=== PATIENT | female | born 1955 | race African-American/Black ===

== ENCOUNTER 2021-05-10 10:18 | Emergency (ER) | payer BC, SELFPAY ==
--- NOTE | ~2021-05-10 | XR_ITS ---
XR shoulder LT min 2V DATE: 05/10/2021 11:15 INDICATION: Left shoulder pain for 4 days. No known injury. TECHNIQUE: 4 views COMPARISON: None FINDINGS: No fracture, dislocation, periosteal reaction or bone destruction or abnormal soft tissue c alcification. Normal alignment at the acromioclavicular and glenohumeral joints. IMPRESSION: Negative Reviewed, dictated and finalized at location B. IMPRESSION: Negative
[2021-05-10 10:43] VITALS: BP 136/72; PULSE 77; RESP 16; TEMP 37.1; O2SAT 100
[2021-05-10 10:44] VITALS: BP 136/72; PULSE 77; RESP 16; TEMP 37.1; O2SAT 100
--- NOTE | 2021-05-10 11:08 | ED.UPPEXIN ---
HPI - Extremity Injury (Upper) General Chief Complaint: Extremity Injury, Upper Stated Complaint: left arm pain Source: patient and RN notes reviewed Mode of arrival: ambulatory History of Present Illness HPI narrative: This is a 65-year-old female that presented to urgent care with complaints of left shoulder and arm pain that occurred approximately 1 week ago. Patient denies any injury or heavy lifting she also denies any numbness tingling, loss of sensation, loss of movement, swelling denies any asymmetrical alignment of arm or shoulder or gait disturbance. The patient denies SOB, CP, palpitation, extremity numbness, lightheadedness, dizziness, constipation, diarrhea, chills, or fever. MD complaint: injury to: left and shoulder Related Data Home Medications Medication Instructions Recorded Confirmed aspirin 81 mg chewable tablet 81 mg PO DAILY 09/04/19 04/27/21 calcium carbonate 600 mg calcium 600 mg PO DAILY 09/04/19 04/27/21 (1,500 mg) tablet cholecalciferol (vitamin D3) 25 1,000 unit PO DAILY 09/04/19 04/27/21 mcg (1,000 unit) capsule lutein 25 mg-zeaxanthin 5 mg 1 cap PO DAILY 09/04/19 04/27/21 capsule multivitamin 1 tablet PO DAILY 09/04/19 04/27/21 prenat.vits,rosa maria,[id number]-[id number] 1 tablet PO DAILY 09/04/19 04/27/21 coQ10 (ubiquinol) 400 mg PO DAILY 10/21/19 04/27/21 fish oil-dha-epa 1 cap PO DAILY 10/21/19 04/27/21 safflower oil-linoleic acid,co 2,000 mg PO TID 10/21/19 04/27/21 [Tonalin CLA] nifedipine PO 05/10/21 05/10/21 Allergies Allergy/AdvReac Type Severity Reaction Status Date / Time erythromycin base Allergy Unknown NAUSEA/VOMITING, Verified 05/10/21 10:43 CRAMPS Review of Systems Review of Systems: Narrative: A 14 organ system Review of Systems was performed and pertinent positives included in the HPI, otherwise remaining ROS is negative. All systems reviewed & are unremarkable except as noted in HPI and below PMFSH Past Medical History Medical History Benign essential HTN Chronic kidney disease (CKD) Hypertensive chronic kidney disease with stage 1 through stage 4 chronic kidney disease, or unspecified chronic kidney disease Internal hemorrhoid Mitral valve prolapse no symptoms since on aspirin Pure hypercholesterolemia Rectal polyp Wellness examination Family History Family History (System 04/26/21 @ 14:59 by Mahsa Ansari) Mother Hypertension Father Family history of diabetes mellitus in first degree relative Social History Social History (Updated 04/27/21 @ 13:00 by Griselda Quan) Smoking status: Never smoker Second hand tobacco smoke exposure: No Alcohol intake: never Substance use: never Gender identity (if verbalized by the patient): Female Exam Narrative: Exam Narrative: GENERAL: This is a well-nourished, well-developed patient, in no apparent distress. HEAD: normocephalic, atraumatic. EYES: PERRL. Sclera clear/white. Vision is grossly intact. EARS: External ears normal, auditory canals clear and without drainage, TMs normal without perforation. Hearing grossly intact. NOSE: External nose normal with no obvious nasal discharge, nares without redness, no rhinorrhea. THROAT: Mucous membranes moist, posterior pharynx clear. NECK: Neck supple, non-tender without lymphadenopathy, masses or thyromegaly. CARDIOVASCULAR: Regular rate and rhythm without murmurs, gallops, or rubs. RESPIRATORY: Clear to auscultation. Breath sounds equal bilaterally. No wheezes, rales, or rhonchi. GASTROINTESTINAL: Abdomen soft, non-tender, nondistended. Bowel sounds are active. No hepato-splenomegaly, or palpable masses. No guarding. SKIN: warm, intact with no suspicious lesions or rash, good texture and turgor. NEURO: awake, alert, and oriented to person, place and time. There were no obvious focal neurologic abnormalities. Steady gait EXTREMITIES: Normal range of motion. Pain with arm rise to the left shoulder ca
== END 2021-05-10 11:30 | disposition home or self-care (01) ==
PROVIDERS: Emergency Provider Nurse Practitioner; PCP Family Medicine
DX: S43.402A Unspecified sprain of left shoulder joint, initial encounter (principal); S46.912A Strain of unspecified muscle, fascia and tendon at shoulder and upper arm level, left arm, initial encounter; X58.XXXA Exposure to other specified factors, initial encounter; I12.9 Hypertensive chronic kidney disease with stage 1 through stage 4 chronic kidney disease, or unspecified chronic kidney disease; N18.9 Chronic kidney disease, unspecified; I34.1 Nonrheumatic mitral (valve) prolapse; E78.00 Pure hypercholesterolemia, unspecified
CPT/HCPCS: 73030; 99213; G0463

== ENCOUNTER 2022-03-03 13:06 | Emergency (ER) | payer BC, SELFPAY ==
[2022-03-03 13:09] VITALS: BP 163/82; PULSE 83; RESP 18; TEMP 37.2; O2SAT 100
[2022-03-03 13:35] LABS: Basophils Percent Auto 0.2 % (0.2-1.2); Eosinophils Percent Auto 0.2 % (0-4.4); Hematocrit 40.6 % (37.0-47.0); Hemoglobin 12.7 g/dL (12.0-15.0); Immature Granulocyte Absolute 0.05 K/mm3 (0.00-0.031); Immature Granulocyte Percent A 0.4 % (0-0.5); Lymphocytes Absolute Auto 1.74 K/mm3 (0.9-3.2); Lymphocytes Percent Auto 13.1 % (18.3-44.2); Mean Corpuscular HGB Conc 31.3 g/dl (32-36); Mean Corpuscular Volume 86.2 fl (80-100); Mean Platelet Volume 11.1 fl (7.4-10.4); Monocytes Absolute Auto 0.5 K/mm3 (0.1-0.6); Monocytes Percent Auto 3.7 % (2.6-8.5); Neutrophils Percent Auto 82.4 % (45.5-73.1); Platelet Count Result 281 k/mm3 (150-375); Red Blood Count 4.71 M/mm3 (4.2-5.4); Red Cell Distribution Width 13.6 % (11.5-14.5); White Blood Count 13.3 K/mm3 (4.5-10.0)
[2022-03-03 13:48] LABS: Prothrombin Time 13.2 Seconds (11.1-14.7)
[2022-03-03 13:49] LABS: Alanine Aminotransferase 23 U/L (4-35); Albumin Level 4.6 g/dL (3.5-5.1); Alkaline Phosphatase 92 U/L (38-126); Anion Gap 10 mmol/L (8-16); Aspartate Amino Transferase 39 U/L (14-36); Bilirubin,Total 0.8 mg/dL (0.2-1.3); Blood Urea Nitrogen 28 mg/dL (7-17); Calcium 9.3 mg/dL (8.4-10.2); Carbon Dioxide 28 mmol/L (22-30); Chloride 103 mmol/L (98-107); Estimated CRCL calculation 35 ml/min; Estimated Glomerular Filt Rate 50; Glucose 130 mg/dL (65-110); Partial Thromboplastin Time 36.1 SECONDS (22.3-36.8); Sodium 141 mmol/L (137-145)
[2022-03-03 17:51] VITALS: BP 161/89; PULSE 68; RESP 18; O2SAT 100
--- NOTE | 2022-03-03 18:34 | ED.GIBLEED ---
HPI - GI Bleed General Chief complaint: GI Bleed Stated complaint: black stool, stomach cramps, stomach pain Time Seen by Provider: 03/03/22 17:49 History of Present Illness HPI Narrative: Patient is a 66-year-old female who presents ER with concerns for GI bleeding. Reports she woke up this morning at 3 AM was having lower abdominal cramping. It then progressed to diarrhea. She reports her stools have been dark black. She has had about 5 episodes of loose black stool today. Denies taking Pepto-Bismol or iron supplementation. She is not on any blood thinners. She does take a baby aspirin daily. No other NSAID use. Patient has had no dizziness or loss of consciousness. No gross blood in stool. Patient has also had several episodes of emesis which are free of blood and free of coffee ground emesis. She has noticed white and yellow in her emesis. Related Data Home Medications Medication Instructions Recorded Confirmed aspirin 81 mg chewable tablet 81 mg PO DAILY 09/04/19 04/27/21 calcium carbonate 600 mg calcium 600 mg PO DAILY 09/04/19 04/27/21 (1,500 mg) tablet cholecalciferol (vitamin D3) 25 1,000 unit PO DAILY 09/04/19 04/27/21 mcg (1,000 unit) capsule lutein 25 mg-zeaxanthin 5 mg 1 cap PO DAILY 09/04/19 04/27/21 capsule multivitamin 1 tablet PO DAILY 09/04/19 04/27/21 prenat.vits,rosa maria,kcn-nhqs-czplm 1 tablet PO DAILY 09/04/19 04/27/21 coQ10 (ubiquinol) 400 mg PO DAILY 10/21/19 04/27/21 fish oil-dha-epa 1 cap PO DAILY 10/21/19 04/27/21 safflower oil-linoleic acid,co 2,000 mg PO TID 10/21/19 04/27/21 [Tonalin CLA] Allergies Allergy/AdvReac Type Severity Reaction Status Date / Time erythromycin base Allergy Unknown NAUSEA/VOMITING, Verified 12/09/21 13:00 CRAMPS Review of Systems Review of Systems: All systems reviewed & are unremarkable except as noted in HPI and below Constitutional: Constitutional: Denies chills, Denies fever(s) and Denies weakness ENT: Denies nasal congestion and Denies sore throat Cardiovascular: Cardiovascular: Denies chest pain, Denies rapid heart rate and Denies radiating jaw, neck or arm pain Respiratory: Respiratory: Denies cough and Denies dyspnea Gastrointestinal: Gastrointestinal: Reports abdominal pain, Reports diarrhea, Reports nausea and Reports vomiting Genitourinary: Genitourinary: Denies nocturia, Denies dysuria and Denies flank pain PMFSH Past Medical History Medical History (Updated 03/03/22 @ 18:39 by Margarito Cardona MD) Benign essential HTN Chronic kidney disease (CKD) Hypertensive chronic kidney disease with stage 1 through stage 4 chronic kidney disease, or unspecified chronic kidney disease Internal hemorrhoid Mitral valve prolapse no symptoms since on aspirin Pure hypercholesterolemia Rectal polyp Wellness examination Family History Family History Mother Hypertension Father Family history of diabetes mellitus in first degree relative Social History Social History Smoking status: Never smoker Second hand tobacco smoke exposure: No Alcohol intake: never Substance use: never Gender identity (if verbalized by the patient): Female Sexual Orientation (if Verbalized by the Patient): Straight or Heterosexual Exam Narrative: GENERAL: Well-appearing, well-nourished, and in no acute distress. HEAD: Normocephalic, atraumatic.st. CHEST: Clear to auscultation. No respiratory distress. HEART: Regular rate and rhythm. Normal peripheral pulses. ABDOMEN: Soft, nontender, nondistended, normal active bowel sounds. Stool normal in appearance and Hemoccult negative. No gross blood. EXTREMITIES: Normal range of motion. No edema. SKIN: Warm, dry, no rash. NEURO: Alert and oriented x3. PSYCH: Normal mood and affect. Course Course Emergency Course: Patient informed of results. No evidence of gastrointestinal bleeding.
[2022-03-03 19:16] VITALS: BP 162/88; PULSE 72; RESP 16; TEMP 36.3; O2SAT 100
== END 2022-03-03 19:17 | disposition home or self-care (01) ==
PROVIDERS: Emergency Provider Emergency Medicine; PCP Family Medicine
DX: K52.9 Noninfective gastroenteritis and colitis, unspecified (principal); I12.9 Hypertensive chronic kidney disease with stage 1 through stage 4 chronic kidney disease, or unspecified chronic kidney disease; N18.9 Chronic kidney disease, unspecified; E78.00 Pure hypercholesterolemia, unspecified; Z87.19 Personal history of other diseases of the digestive system; Z79.82 Long term (current) use of aspirin
CPT/HCPCS: 36415; 80053; 85025; 85610; 85730; 86850; 86900; 86901; 99283

== ENCOUNTER → 2022-08-18 14:02 | Outpatient (CLI) | payer BC, SELFPAY ==
--- NOTE | ~2022-08-18 | DEXA_ITS ---
Bone Density Report Name: LORNA GONG Age: 66 Sex: Female Ethnicity: Black Date of : 1955 Indication: postmenopausal; screening for osteoporosis; Referring Provider: JANKI, MARTINA Study: Bone densitometry was performed. Exam Date: August 18, 2022 Accession number: [id number] Bone Density: Region BMD T-score Z-score Classification AP Spine (L1-L4) 1.014 -0.3 0.7 Normal Femoral Neck (Left) 0.744 -0.9 -0.2 Normal Total Hip (Left) 0.817 -1.0 -0.4 Normal Femoral Neck (Right) 0.760 -0.8 -0.1 Normal Total Hip (Right) 0.846 -0.8 -0.2 Normal Total Hip Mean 0.832 -0.9 -0.3 Normal World Health Organization criteria for BMD impression classify patients as: Normal (T-score at or above -1.0), Osteopenia (T-score between -1.0 and -2.5), or Osteoporosis (T-score at or below -2.5). 10-year Fracture Risk: FRAX not reported because: All T-scores for Spine Total, Hip Total, Femoral Neck at or above -1.0 Previous Exams: Region Exam Age BMD T-score BMD Change BMD Change Date g/cm2 vs Baseline vs Previous AP Spine(L1-L4) 08/18/2022 66 1.014 -0.3 -0.150* -0.060* 04/30/2015 59 1.075 0.3 -0.090* 0.033* 08/11/2012 56 1.041 -0.1 -0.123* -0.123* 10/21/2009 53 1.165 1.1 Total Hip(Left) 08/18/2022 66 0.817 -1.0 -0.129* -0.062* 04/30/2015 59 0.879 -0.5 -0.067* 0.032* 08/11/2012 56 0.847 -0.8 -0.099* -0.099* 10/21/2009 53 0.946 0.0 Total Hip(Right) 08/18/2022 66 0.846 -0.8 -0.105* -0.035* 04/30/2015 59 0.881 -0.5 -0.070* -0.028* 08/11/2012 56 0.909 -0.3 -0.042* -0.042* 10/21/2009 53 0.951 0.1 *Denotes significance at 95% confidence level, LSC for AP Spine = 0.022 g/cm2, LSC for Total Hip = 0.027 g/cm2 Clinical Information Provided by Patient: Has used the following medications: Vitamin D, Calcium Patient maximum height was 65 Menopause Age: 52 Does not regularly consume dairy products Drinks caffeinated beverages Onset of menses at age 16 Number of children 2 Impression: The patient has normal bone mass. The BMD for the AP Spine(L1-L4) decreased, changing by -0.060 since the last DXA exam. The BMD for the Total Hip(Left) decreased, changing by -0.062 since the last DXA exam. The BMD for the Total Hip(Right) decreased, changing by -0.035 since the last DXA
== END ==
PROVIDERS: PCP Family Medicine; Visit Provider Nurse Practitioner
DX: M85.88 Other specified disorders of bone density and structure, other site (principal)
CPT/HCPCS: 77080

== ENCOUNTER → 2022-10-03 12:00 | Outpatient (CLI) | payer BC, SELFPAY ==
--- NOTE | ~2022-10-03 | MM_ITS ---
EXAMINATION: MM screening francy BI w renay HISTORY: Screening mammogram TECHNIQUE: Craniocaudal and mediolateral oblique 3-D tomosynthesis images were obtained and synthetic 2-D images were generated. CAD analysis was submitted and interpreted. COMPARISON: No prior mammogram is available for comparison at this institution. BREAST PARENCHYMAL COMPOSITION: There are scattered areas of fibroglandular density. FINDINGS: RIGHT BREAST: An asymmetry is present in the posterior third of the inner breast on the craniocaudal view. LEFT BREAST: No suspicious mass, calcification, or architectural distortion are identified to suggest malignancy. IMPRESSION: 1. Right breast asymmetry which may represent the patient's baseline however no comparison is current ly available. 2. Comparison with prior mammograms is necessary. BI-RADS Category 0: Incomplete: Needs comparison with prior mammograms. 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 Right breast asymmetry which may represent the patient's baseline however no comparison is currently available. 2. Comparison with prior mammograms is necessary. BI-RADS Category 0: Incomplete: Needs comparison with prior mammograms.
== END ==
PROVIDERS: PCP Family Medicine; Visit Provider Nurse Practitioner
DX: Z12.31 Encounter for screening mammogram for malignant neoplasm of breast (principal); R92.8 Other abnormal and inconclusive findings on diagnostic imaging of breast
CPT/HCPCS: 77063; 77067

== ENCOUNTER → 2023-07-28 12:07 | Outpatient (CLI) | payer SELFPAY ==
--- NOTE | ~2023-07-28 | XR_ITS ---
EXAMINATION:XR cervical spine min 6V DATE: 07/28/2023 13:26 INDICATION: Neck pain TECHNIQUE: AP, lateral, bilateral oblique, lateral swimmers and odontoid views of the cervical spine are provided. COMPARISON: 02/28/2006 FINDINGS: There is straightening of the cervical spine which can be positional or due to muscular spa sm. Alignment is normal. The odontoid process is intact. No fracture is identified. There is mild los s of intervertebral disc space height at C4-5, C5-6, and C6-7. Small degenerative osteophytes project from the anterior endplates of multiple vertebral bodies. Prevertebral soft tissues are normal. IMPRESSION: 1. Mild cervical spondylosis without acute findings. Reviewed, dictated and finalized at location F.
== END ==
PROVIDERS: PCP Physician Assistant; Visit Provider Physician Assistant
DX: M47.892 Other spondylosis, cervical region (principal)
CPT/HCPCS: 72052

== ENCOUNTER → 2023-11-17 11:55 | Outpatient (CLI) | payer BC, SELFPAY ==
--- NOTE | ~2023-11-17 | MM_ITS ---
EXAMINATION: MM screening francy BI w renay HISTORY: Screening TECHNIQUE: Craniocaudal and mediolateral oblique 3-D tomosynthesis images were obtained and synthetic 2-D images were generated. CAD analysis was submitted and interpreted. COMPARISON: Comparison to multiple prior studies sequentially, with oldest reviewed study dated 12/20. BREAST PARENCHYMAL COMPOSITION: There are scattered areas of fibroglandular density. FINDINGS: There is no evidence of suspicious mass, calcification, or architectural distortion to sugg est malignancy in either breast. There has been no suspicious interval change. IMPRESSION: 1. No mammographic evidence of malignancy. 2. Recommend routine screening mammography in one year. BI-RADS Category 1: Negative Reviewed, dictated and finalized at location A. 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
== END ==
PROVIDERS: PCP Nurse Practitioner; Visit Provider Nurse Practitioner
DX: Z12.31 Encounter for screening mammogram for malignant neoplasm of breast (principal)
CPT/HCPCS: 77063; 77067

== ENCOUNTER 2024-06-17 14:40 | Emergency (ER) | payer OTHER, SELFPAY ==
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
[2024-06-17 14:43] VITALS: BP 140/65; PULSE 82; RESP 18; TEMP 36.8; O2SAT 99
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
[2024-06-17] MEDS: KETOROLAC (*BKC) 60 MG/2 ML VIAL IM (17:31)
[2024-06-17 19:20] VITALS: BP 153/77; PULSE 67; RESP 17; O2SAT 99
== END 2024-06-17 19:20 | disposition home or self-care (01) ==
PROVIDERS: Emergency Provider Registered Nurse; PCP Family Medicine
DX: S13.4XXA Sprain of ligaments of cervical spine, initial encounter (principal); I12.9 Hypertensive chronic kidney disease with stage 1 through stage 4 chronic kidney disease, or unspecified chronic kidney disease; N18.9 Chronic kidney disease, unspecified; E78.5 Hyperlipidemia, unspecified; V49.40XA Driver injured in collision with unspecified motor vehicles in traffic accident, initial encounter
CPT/HCPCS: 70450; 71046; 72125; 96372; 99284; J1885

== ENCOUNTER 2024-06-25 12:42 | Outpatient (CLI) | payer BC, SELFPAY ==
--- NOTE | ~2024-06-25 | US_ITS ---
EXAMINATION: US thyroid DATE: 06/25/2024 12:57 INDICATION: Nontoxic single thyroid nodule. TECHNIQUE: Multiple ultrasound images of the thyroid were obtained. COMPARISON: None. FINDINGS: The right thyroid lobe measures 4.6 x 2.5 x 2.4 cm. The left thyroid lobe measures 4.4 x 1.6 x 1.5 c m. In the right thyroid lobe, there is a 2.9 cm mixed solid and cystic, isoechoic, wider than tall n odule with smooth margin and echogenic foci (TI-RADS TR2). In the right thyroid lobe, there is an 8 m m mixed cystic and solid, isoechoic, wider than tall nodule with ill-defined margin without echogenic foci (TR2). In the left thyroid lobe, there is a 5 mm mixed cystic and solid, hypoechoic, wider than tall nodule with smooth margin without echogenic foci (TR3). There are multiple smaller nodules in t he thyroid. IMPRESSION: 1. Thyroid nodules, likely not clinically significant. No follow-up is needed. 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
== END 2024-06-25 12:43 ==
LOC: MICIMG 12:43
PROVIDERS: PCP Physician Assistant; Visit Provider Physician Assistant
DX: E04.2 Nontoxic multinodular goiter (principal)
CPT/HCPCS: 76536

== ENCOUNTER 2024-10-05 10:57 | Emergency (ER) | payer BC, SELFPAY ==
--- NOTE | ~2024-10-05 | XR_ITS ---
EXAMINATION: XR chest 2V DATE: 10/05/2024 11:32 INDICATION: Fever. Decreased lung sounds. TECHNIQUE: Frontal and lateral views of the chest were obtained. COMPARISON: Chest 2 views 06/17/2024 FINDINGS: There is no pneumonia, pleural effusion, or pneumothorax. Cardiomegaly is noted. IMPRESSION: 1. Cardiomegaly. 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 NDER MACHINE OPERATOR IMPRESSION: 1. Cardiomegaly.
[2024-10-05 11:03] VITALS: BP 144/82; PULSE 81; RESP 20; TEMP 37; O2SAT 100
--- NOTE | 2024-10-05 11:16 | ED_ITS ---
HPI - General Adult General Chief complaint: Upper Respiratory Infection Stated complaint: sinus infection Time Seen by Provider: 10/05/24 11:17 Source: patient Mode of arrival: ambulatory Limitations: no limitations History of Present Illness HPI narrative: 58-year-old female patient presents to the [facility] with complaints of cold symptoms for the past week. Patient states she has had fatigue some body aches and chills along with low-grade fevers that range anywhere from 99-100. Patient states she has had a sore throat did test herself yesterday for COVID which was negative. Patient states she has also had some congestion, runny nose and a cough. Denies any production to the cough. Related Data Home Medications Medication Instructions Recorded Confirmed aspirin 81 mg chewable tablet 81 mg PO DAILY 09/04/19 10/05/24 calcium carbonate (Calcium 600) 600 mg PO DAILY 09/04/19 10/05/24 lutein 25 mg-zeaxanthin 5 mg 1 cap PO DAILY 09/04/19 10/05/24 capsule multivitamin 1 tablet PO DAILY 09/04/19 10/05/24 prenat.vits,rosa maria,nnl-qchq-ahjsd 1 tablet PO DAILY 09/04/19 10/05/24 coQ10 (ubiquinol) 200 mg capsule 400 mg PO DAILY 10/21/19 10/05/24 fish oil-dha-epa 1,200 mg-144 1 cap PO DAILY 10/21/19 10/05/24 mg-216 mg capsule safflower oil-linoleic acid, 2,000 mg PO TID 10/21/19 10/05/24 conjugated 1,000 mg capsule (Tonalin CLA) Allergies Allergy/AdvReac Type Severity Reaction Status Date / Time erythromycin base AdvReac Unknown NAUSEA/VOMITING, Verified 10/05/24 11:10 CRAMPS Review of Systems Review of Systems: CONSTITUTIONAL: Positive fever, body aches and chills, deniessweats. EYES: Denies visual changes, redness, or discharge. ENT: positive rhinorrhea, congestion, sore throat, denies otalgia. CARDIOVASCULAR: Denies chest pain, palpitations, or edema. RESPIRATORY: positive cough , denies dyspnea. GASTROINTESTINAL: Denies abdominal pain, nausea, vomiting, or diarrhea. GENITOURINARY: Denies dysuria or hematuria. SKIN: Denies rash or itching. MUSCULOSKELETAL: Denies back pain, joint pain, or myalgia. NEUROLOGIC: Denies headache, numbness, or weakness. PSYCHIATRIC: Denies anxiety or depression. [facility] Past Medical History Medical History Benign essential HTN Chronic kidney disease (CKD) Hypertensive chronic kidney disease with stage 1 through stage 4 chronic kidney disease, or unspecified chronic kidney disease Internal hemorrhoid Mitral valve prolapse no symptoms since on aspirin Multinodular thyroid Pure hypercholesterolemia Rectal polyp Wellness examination Family History Family History Mother Hypertension Father Family history of diabetes mellitus in first degree relative Social History Social History Smoking status: Never smoker Second hand tobacco smoke exposure: No Alcohol intake: never Substance use: never Living arrangements: with family Occupation/Education: retired Gender identity (if verbalized by the patient): Female Sexual Orientation (if Verbalized by the Patient): Straight or Heterosexual Comments At the time of my signature I agree with nursing past medical history, surgical, social, and family history. There is no relevant family history pertinent to the presenting complaint. Exam Narrative: GENERAL: Well-appearing, well-nourished, and in no acute distress. HEAD: Normocephalic, atraumatic. EYES: PERRLA and EOMI. ENT: Nares with erythema edema noted bilaterally no rhinorrhea or epistaxis. Mucous membranes moist. posterior pharynx with some postnasal drip present no tonsillar enlargement, no exudates or lesions present. Bilateral TMs are clear with no erythema foreign bodies the canal. NECK: Supple. No lymphadenopathy CHEST: Breath sounds are decreased at bilateral lower lobes on auscultation. No respiratory distress. no obvious coughing noted on / during exam HEART: Regular rate and rhythm. No murmur heard. Normal peripheral pulses. ABDOMEN: Soft, nontender, nondistended, normal active bowel sounds. EXTREMITIES: Normal range of motion. No edema. SKIN: Warm, dry, no rash. NEURO: No focal deficits. Alert and oriented x3. Course Course Level of Care: Express Care Visit Vital Signs Vital signs: Vital Signs Temperature 37.0 C 10/05/24 11:03 Pulse Rate 81 10/05/24 11:03 Respiratory Rate 20 10/05/24 11:03 Blood Pressure 144/82 H 10/05/24 11:03 Pulse Oximetry 100 10/05/24 11:03 Oxygen Delivery Room Air 10/05/24 11:03 Temperature 37.0 C 10/05/24 11:03 Pulse Rate 81 10/05/24 11:03 Respiratory Rate 20 10/05/24 11:03 Blood Pressure 144/82 H 10/05/24 11:03 Pulse Oximetry 100 10/05/24 11:03 Oxygen Delivery Room Air 10/05/24 11:03 vital signs reviewed. The patient has been informed that they may have pre-hypertension or Hypertension based on a BP reading in the department. I recommend that the patient call the primary care provider listed on their discharge instructions or a physician of their choice this week to arrange follow up for further evaluation of possible pre-hypertension or Hypertension Medical Decision Making MDM Narrative Medical decision making narrative: plan care for patient is to swab her for strep today since she has had a sore throat we will also do a chest x-ray since she has had low-grade fevers, or cough and body aches and chills and there is been frequent or reports of community acquired pneumonia. Differential Diagnosis Differential Diagnosis: Differential diagnosis: Allergic rhinitis, chronic sinusitis, tonsillitis, acute sinusitis, infectious mononucleosis, seasonal influenza, pertussis, diphtheria, meningococcal disease, viral syndrome, viral bronchitis, RSV, COVID- 19 Vital Signs Vital Signs: Vital Signs Temperature 37.0 C 10/05/24 11:03 Pulse Rate 81 10/05/24 11:03 Respiratory Rate 20 10/05/24 11:03 Blood Pressure 144/82 H 10/05/24 11:03 Pulse Oximetry 100 10/05/24 11:03 Oxygen Delivery Room Air 10/05/24 11:03 Temperature 37.0 C 10/05/24 11:03 Pulse Rate 81 10/05/24 11:03 Respiratory Rate 20 10/05/24 11:03 Blood Pressure 144/82 H 10/05/24 11:03 Pulse Oximetry 100 10/05/24 11:03 Oxygen Delivery Room Air 10/05/24 11:03 Lab Data Labs: Lab Results 10/05/24 Range/Units 11:25 POC Grp A Strep Screen Negative (Negative) Imaging Data Radiologist's impression: [facility] [address] [address] XRay Report Signed Patient: Thao Lane : 1955 MR#: [id number] Age: 68 Acct:[id number] Loc: [facility] ADM Date: 10/05/24Attending Dr: Ordering Physician: Yenifer Morataya PRODUCTION OPERATIONS ENGINEER Date of Service: 10/05/24 Procedure(s): XR chest 2V Accession Number(s): [id number] cc: Wyatt Leone MD; Yenifer Morataya PRODUCTION OPERATIONS ENGINEER~ EXAMINATION: XR chest 2V DATE: 10/05/2024 11:32 INDICATION: Fever. Decreased lung sounds. TECHNIQUE: Frontal and lateral views of the chest were obtained. COMPARISON: Chest 2 views 06/17/2024 FINDINGS: There is no pneumonia, pleural effusion, or pneumothorax. Cardiomegaly is noted. IMPRESSION: 1. Cardiomegaly. 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 ABILITY SPECIALIST Dictated By: Angel Erazo MD 10/05/24 1137 Signed By: <Electronically signed by Angel Erazo MD in OV> Critical Care Time Critical Care Time Critical Care Time: No Discharge Plan Discharge Clinical Impression: Viral URI with cough Patient Disposition: Home, Self-Care Condition: Stable Instructions: Antibiotic Form, Viral Syndrome (ED) Additional Instructions: Viral illness may last between 7-12days; antibiotic is NOT recommended at this time. Recommend antihistamine such as Benadryl at night time and Claritin/Zyrtec/Demi during the day Cough syrup may cause drowsiness; avoid driving or take it at night time. Use inhaler as needed for cough, wheezing, shortness of breath or chest tightness. Also, recommend symptomatic treatment includes: rest, fluids, and increase humidity of the air at home. Recommend Acetaminophen or nonsteroidal anti-inflammatory agents (NSAIDs) as directed in the bottle to reduce fever and/pain/headache. Avoid smoking/second-hand smoke. Limit visits to areas with large crowds. Please schedule a follow-up visit with your personal physician for further evaluation and treatment within 3-5days. Including recheck and discussion of your blood pressure. If your symptoms persist, change or worsen significantly before you can contact your personal physician then please, without delay, go to the emergency department for further evaluation. Prescriptions: New benzonatate 200 mg capsule 200 mg PO TID PRN (Reason: cough) 10 Days Qty: 30 0RF methylprednisolone 4 mg tablets,dose pack See Rx Instructions PO .COMPLEX Qty: 21 0RF Rx Instructions: for 6 days No Action lutein-zeaxanthin 25-5 mg capsule 1 cap PO DAILY aspirin 81 mg tablet,chewable 81 mg PO DAILY calcium carbonate [Calcium 600] 600 mg calcium (1,500 mg) tablet 600 mg PO DAILY prenat.vits,rosa maria,[id number]-bvdt-oqgjz Tablet 1 tablet PO DAILY multivitamin Tablet 1 tablet PO DAILY fish oil-dha-epa 1,200-144-216 mg Capsule 1 cap PO DAILY Tonalin CLA 1,000 mg Capsule 2,000 mg PO TID coQ10 (ubiquinol) 200 mg Capsule 400 mg PO DAILY nifedipine 60 mg tablet extended release See Rx Instructions .ROUTE .COMPLEX Qty: 90 2RF Dose Instruction: TAKE 1 TABLET DAILY. Rx Instructions: TAKE 1 TABLET DAILY. atorvastatin 20 mg tablet See Rx Instructions .ROUTE .COMPLEX Qty: 90 3RF Dose Instruction: TAKE 1 TABLET DAILY Rx Instructions: TAKE 1 TABLET DAILY Follow-up/Referrals: Wyatt Leone MD [Primary Care Provider] - Time of Disposition: 12:07
[2024-10-05 11:27] LABS: EDSTREPNEGPOS1 Negative (Negative)
== END 2024-10-05 12:10 | disposition home or self-care (01) ==
PROVIDERS: Emergency Provider Nurse Practitioner Family; PCP Family Medicine
DX: J06.9 Acute upper respiratory infection, unspecified (principal); B97.89 Other viral agents as the cause of diseases classified elsewhere; I12.9 Hypertensive chronic kidney disease with stage 1 through stage 4 chronic kidney disease, or unspecified chronic kidney disease; N18.9 Chronic kidney disease, unspecified; Z79.82 Long term (current) use of aspirin; Z79.899 Other long term (current) drug therapy
CPT/HCPCS: 71046; 87081; 87880; 99213; G0463

== ENCOUNTER 2024-10-16 12:01 | Outpatient (CLI) | payer BC, SELFPAY ==
--- NOTE | ~2024-10-16 | DEXA_ITS ---
Bone Density Report Name: LORNA GONG Age: 68 Sex: Female Ethnicity: White Date of : 1955 Indication: postmenopausal; screening for osteoporosis; Referring Provider: JACIEL KATHLEEN Study: Bone densitometry was performed. Exam Date: October 16, 2024 Accession number: [id number] Bone Density: Region BMD T-score Z-score Classification AP Spine(L2, L3, L4) 1.075 0.0 1.9 Normal Femoral Neck (Left) 0.733 -1.0 0.6 Normal Total Hip (Left) 0.803 -1.1 0.2 Osteopenia Femoral Neck (Right) 0.734 -1.0 0.6 Normal Total Hip (Right) 0.791 -1.2 0.1 Osteopenia Total Hip Mean 0.797 -1.2 0.2 Osteopenia World Health Organization criteria for BMD impression classify patients as: Normal (T-score at or above -1.0), Osteopenia (T-score between -1.0 and -2.5), or Osteoporosis (T-score at or below -2.5). 10-year Fracture Risk(1): Major Osteoporotic Fracture 8.3% Hip Fracture 0.7% Reported Risk Factors: [place] (), Neck BMD=0.733, BMI=27.5 (1) FRAX(R) Version 3.08. Fracture probability calculated for an untreated patient. Fracture probability may be lower if the patient has received treatment. Clinical Information Provided by Patient: Has used the following medications: Vitamin D, Calcium Patient maximum height was 65 Drinks caffeinated beverages Onset of menses at age 16 Number of children 2 Impression: The patient has low bone mass, based on the Right Total Hip T-score. The patient has an estimated ten-year risk of hip fracture of 0.7% and an estimated ten-year risk of major fracture of 8.3%, based on the WHO FRAX algorithm. Discussion: BONE DENSITY IS LOW AT ONE OR MORE SKELETAL SITES. This patient's lowest T-score is low at one or more skeletal sites. It meets the World Health Organization's (WHO) criteria for ?low bone mass? (T-score between -1.0 and -2.5). The patient's 10-year risk of fracture as calculated by FRAX is less than the threshold where pharmacological therapy is recommended by the National Osteoporosis Foundation (NOF). However, all treatment decisions require clinical judgment and consideration of individual patient factors, including patient preferences, comorbidities, previous drug use, risk factors not captured in the FRAX model (e.g., frailty, falls, vitamin D deficiency, increased bone turnover, interval significant decline in bone density) and possible under or overestimation of fracture risk by FRAX. The patient should follow a healthful lifestyle (good nutrition with adequate calcium and vitamin D, and appropriate weight-bearing exercise). Follow-Up: Consider repeating this study in 2 to 3 years to reassess this patient's status, or sooner if there is some new clinical indication. Reported by: TRAVON on 10/16/2024 12:36:00 PM. Reviewed, dictated and finalized at location ANayely BARBOUR
== END 2024-10-16 12:02 | disposition home or self-care (01) ==
LOC: ANHIMG 12:09
PROVIDERS: PCP Family Medicine; Visit Provider Obstetrics & Gynecology Gynecology
DX: Z78.0 Asymptomatic menopausal state (principal); M85.852 Other specified disorders of bone density and structure, left thigh; M85.851 Other specified disorders of bone density and structure, right thigh
CPT/HCPCS: 77080

== ENCOUNTER 2024-11-19 10:13 | Outpatient (CLI) | payer BC, SELFPAY ==
--- NOTE | ~2024-11-19 | MM_ITS ---
EXAMINATION: MM screening francy BI w renay HISTORY: Screening TECHNIQUE: Craniocaudal and mediolateral oblique 3-D tomosynthesis images were obtained and synthetic 2-D images were generated. CAD analysis was submitted and interpreted. COMPARISON: Comparison to multiple prior studies sequentially, with oldest reviewed study dated 11/2014. BREAST PARENCHYMAL COMPOSITION: Not dense: There are scattered areas of fibroglandular density. FINDINGS: There is no evidence of suspicious mass, calcification, or architectural distortion to sugg est malignancy in either breast. There has been no suspicious interval change. IMPRESSION: 1. No mammographic evidence of malignancy. 2. Recommend routine screening mammography in one year. BI-RADS Category 1: Negative Reviewed, dictated and finalized at location A. E REDUCTION COORDINATOR
--- OUTSIDE RECORDS SUMMARY | 2024-11-21 17:15 | XMS_ITS | Clinical Summary ---
Author Organization [facility] Address [address] [place] [address] Care Team Providers Care Process Control Supervisor Name Role Phone Wyatt Leone MD Primary Care Provider Allergies Active Allergy Reactions Criticality Noted Date Comments Erythromycin Nausea only Low 08/07/2018 Medications NIFEDIPINE CC 60 mg 24 hr tablet 06/07/2018 Act oscar atorvastatin (LIPITOR) 20 mg tablet Take 1 tablet (20 mg total) by mouth daily 06/28/2024 Active coenzyme Q10 (Co Q-10) 200 mg capsule 04/13/2022 Active simethicone (GAS-X) 125 mg capsule 04/13/2022 Active safflower oil/linoleic acid,co (TONALIN CLA ORAL) 04/13/2022 Active vits62/FA/om3/dh a/epa ( GUMMY ORAL) 04/13/2022 Active ciwyl-6-bym-epa- dpa-fish oil (Etna-3 2100) 1,050-1,200 mg capsule 04/13/2000 Active lutein-zeaxanthi n 20-4 mg capsule 04/13/2022 Active cyclobenzaprine (FLEXERIL) 10 mg tablet Take 1 tablet (10 mg total) by mouth 3 (three) times a day as needed for muscle spasms 06/26/2024 Active calcium phos,dibas-vitam in D3 100 mg calcium- 3 mcg tablet 04/13/2022 Active biotin 10,000 mcg capsule 04/13/2022 Active aspirin 81 MG oral suspension 04/13/2022 Act osacr benzonatate (TESSALON) 200 mg capsule 10/05/2024 Active Active Problems Problem Noted Date Diagnosed Date Atelectasis 10/16/2024 Encounters Date Type Department Care Team Description 10/16/2024 9:00 AM ROOFING CONTRACTOR Office Visit [facility] Pulmonary [address] [facility] Office Building [address] [place] [address] Orestes Rodríguez MD Atelectasis (Primary Dx); Abnormal chest x-ray 10/16/2024 7:44 AM ROOFING CONTRACTOR - 10/16/2024 11:59 PM ROOFING CONTRACTOR Hospital Encounter [facility] PFT Lab [address] [facility] Building [address] [place] [address] Atelectasis Discharge Disposition: Discharge to home or self care 10/16/2024 7:15 AM ROOFING CONTRACTOR - 10/16/2024 11:59 PM ROOFING CONTRACTOR Hospital Encounter [facility] [address] [place] [address] Atelectasis Discharge Disposition: Discharge to home or self care 10/03/2024 Orders Only [facility] Pulmonary [address] [place] [address] [place] [address] Orestes Rodríguez MD Atelectasis (Primary Dx) 09/16/2024 2:40 PM ROOFING CONTRACTOR Office Visit [facility] Department of Otolaryngology Head-Neck Division [address] [facility] Floor 5 [place] [id number] Judit Tadeo PA Thyroid nodule (Primary Dx); Globus sensation; Epistaxis; Post-nasal drip 09/09/2024 [facility] ([facility]) - [facility] ENT [address] [facility] Medicine 11th [place] [address] [place] [address] Joselyn May, MS from Last 3 Months Medical History Medical History Date Comments Hypercholesteremia Hypertension Headache Mitral valve prolapse Family History Medical History Relation Name Comments Hypertension Father Arthritis Mother Gout Mother Hypertension Mother Relation Name Status Comments Father Mother Social History Tobacco Use Types Packs/Day Years Used Date Smoking Tobacco: Never Smokeless Tobacco: Never Comments No Sex and Gender Information Value Date Recorded Sex Assigned at Not on file Legal Sex Female 3:19 AM ROOFING CONTRACTOR Gender Identity Female 07/03/2024 4:22 PM CDT Sexual Orientation Straight 07/03/2024 4: 22 PM CDT Obstetrics History Para Term AB IAB SAB Ectopic Multiple Livin g Live Births 2 2 2 Date Outcome GA Total Labor Labor//3rd Weight Sex Type Anes PTL Zahraa A1 A5 Name Clin Term Term Last Filed Vital Signs Vital Sign Reading Time Taken Comments Blood Pressure 121/70 10/16/2024 9:13 AM ROOFING CONTRACTOR Pulse 81 10/16/2024 9:13 AM ROOFING CONTRACTOR Temperature 36.6 ??C (97.8 ??F) 10/16/2024 9:13 AM CS T Respiratory Rate 18 10/16/2024 9:13 AM ROOFING CONTRACTOR Oxygen Saturation 99% 10/16/2024 9:13 AM ROOFING CONTRACTOR Inhaled Oxygen Concentration - - Weight 77.6 kg (171 lb) 10/16/2024 9:13 AM ROOFING CONTRACTOR Height 165.1 cm (5' 5 ) 10/16/2024 9:13 AM ROOFING CONTRACTOR Body Mass Index 28.46 10/16/2024 9:13 AM ROOFING CONTRACTOR Plan of Treatment Health Maintenance Due Date Last Done Comments Colon Cancer Screening-Colonoscopy 1955 Depression Screening 1955 Fall Risk Assessment 1955 Hepatitis C Screening 1955 DTaP/Tdap/Td Vaccine (1 - Tdap) 1968 Hepatitis B Screening 1975 Zoster Vaccine (1 of 2) 2007 Osteoporosis Screening-Bone Density Scan 05/07/2022 05/07/2020 Breast Cancer Screening-Mammogram 07/13/2022 07/13/2021, 07/10/2020, 12/20/2018, Additional history exists Pneumococcal vaccine 65+ (1 of 1 - PCV) 2022 Well Visit 65+ 2022 Covid-19 Vaccine (3 - 4-2 5 season) 2024 03/18/2021, 02/24/2021 Influenza Vaccine (#1) 2024 Procedures Procedure Name Priority Date/Time Associated Diagnosis Comments PULMONARY FUNCTION TEST (PFT) Routine 10/16/2024 8:55 AM ROOFING CONTRACTOR Atelectasis XR CHEST PA LATERAL 2 VIEWS Schedule Routine, Read Routine (OP Routine) 10/16/2024 7:31 AM ROOFING CONTRACTOR Atelectasis SCREENING MAMMOGRAM BILATERAL W DIALLO Schedule Routine, Read Routine (OP Routine) 07/13/2021 3:47 PM CDT Screening breast examination DEXA AXIAL SKELETON BONE DENSITY 1 OR MORE SITES 05/07/2020 12:30 PM CDT from Last 3 Months or Most Recently Relevant to Health Maintenance Results * Pulmonary Function Test - (10/16/2024 8:55 AM ROOFING CONTRACTOR) FVC PRE 2.27 L [facility] FVC %PRE PRED 86 % [facility] FVC POST 2.34 L [facility] FVC %POST PRED 89 % [facility] FEV1 PRE 2.05 L [facility] FEV1 %PRE PRED 100 % [facility] FEV1 POST 2.06 L [facility] FEV1 %POST PRED 100 % [facility] FEV1/FVC PRE 90.3 % [facility] FEV1/FVC POST 88.3 % [facility] FRC PL PRE 2.34 L [facility] FRC PL %PRE PRED 78 % [facility] RV PRE 1.77 L [facility] RV %PRE PRED 81 % [facility] TLC PRE 4.52 L [facility] TLC %PRE PRED 86 % [facility] DLCO PRE 14.3 ml/min/mmH g [facility] DLCO %PRE PRED 72 % [facility] FIO2 % 21.00 % [facility] PaO2 84.0 mmHg [facility] PaCO2 44.0 mmHg [facility] pH 7.47 [facility] A-aDO2 POC 11.0 mmHg [facility] METHGB % 0.9 % [facility] COHb POC 0.9 % [facility] HCO3 32.0 mEq/L [facility] Anatomical Region Laterality Modality PFT 10/16/2024 7:47 AM ROOFING CONTRACTOR Narrative 10/17/2024 8:24 AM ROOFING CONTRACTOR Table formatting from the original result was not included. [facility] Division of Pulmonary & Critical Care Medicine [address] [place] [address]; [place] [facility]; [place], [place] ??[address]; [phone] Pulmonary Function Laboratory Pulmonary Stress Test Simple/Oxygen Assessment Patient: Thao Lane Date: 10/16/2024 : 1955 Ht: 65 IN Wt: 171 LBS Time (min) Distance (ft)/ Harmon O2 L/M SpO2 HR Jerson* BP FEV1 % Pred Rest: ??RA 100 80 0 118/64 2.03 100 % ? Walk/Bike: 1 ??RA 100 87 0 ? 2 ??RA 100 92 0 ? 3 ??RA 100 96 0 ? 4 ??RA 100 98 0 ? 5 ??RA 100 99 0 ? 6 min 0 sec ??RA 100 101 0 ? Recovery: 1 ??RA 100 86 0 135/69 2.02 98% 3 ?*Jerson rate of perceived exertion (1-10 dyspnea scale) ??Ruben, CHEST 2003; 123:1408 Walk Test Summary: Six Minute Walk Distance: 1375 ft Six-minute Walk Work [distance (m) x body wt (kg)]: 35269 kg.m (normal >60,000kg.m) Oxygen required to maintain SpO2 greater than 90% during six minutes of walkin L/M Comments: Interpretation: Breathing room air, SpO2 is normal at rest and during exercise sufficient to increase pulse, SpO2 is stable. On this basis, SpO2 is adequate at rest breathing room air and while walking breathing room air. This level of exercise is associated with no significant change of FEV1. ?? By signing this report, the attending pulmonary physician certifies that he/she has personally reviewed and interpreted the graphic and numerical data associated with this pulmonary function study and has reviewed and /or edited a preliminary draft report and agrees with the written final report. PFT performed at:->[facility] Adult PFT Lab- [facility] Procedure:->Oxygen Assessment Titration Procedure:->Spirometry Procedure:->Spirometry with Bronchodilator Procedure:->Lung Volumes Procedure:->ABG with Co-oximetry Procedure:->DLCO Lung Volumes via:->Pleth with Airway Resistance DLCO:->Spirometry Air Type:->Room Air Pulmonary Function Test Interpretation SPIROMETRY: Spirometry did not meet standards of acceptability and reproducibility. This diminishes the reliability of the results. Spirometry is normal. There is no significant improvement after inhaling a single dose of albuterol. The inspiratory loop is suggestive of submaximal effort. LUNG VOLUMES: TLC measured by plethysmography is normal. DLCO: The diffusing capacity is normal. The diffusing capacity corrected for hemoglobin level (DLCO ADJ) is within normal limits. ARTERIAL BLOOD GAS: There is a compensated metabolic alkalosis. Impression: There is no significant ventilatory defect. There is no impairment of alveolar gas exchange by DLCO. There is no impairment of gas exchange at rest by ABG. The attending pulmonary physician certifies a physician presence in the [facility] Suite during the administration of aerosolized bronchodilator. The attending pulmonary physician certifies that he/she has reviewed and interpreted the graphic and numerical data of this pulmonary function study and agrees with the written final report. The lower limit of normal for PaO2 and %HbO2 is age dependent. However, the [facility] Pulmonary Function Laboratory defines hypoxemia as a PaO2 <56 mm Hg or a %HbO2 <89%. Orestes Rodríguez MD PFT ORDERABLES F inal Result * XR Chest Pa Lateral 2 Views (10/16/2024 7:31 AM ROOFING CONTRACTOR) Anatomical Region Laterality Modality Body, Chest N/A Computed Radiogr aphy 10/16/2024 9:12 AM ROOFING CONTRACTOR Impressions 10/16/2024 9:12 AM ROOFING CONTRACTOR No prior studies available for comparison. ??There is no focal consolidation, pleural effusion, or pneumothorax. ??Heart size is upper limits of normal. ?? Electronically signed by: Hilary Goldstein M.D. Narrative 10/16/2024 9:12 AM ROOFING CONTRACTOR EXAMINATION: 2 view chest radiograph Procedure Note Hilary Goldstein MD - 10/16/2024 EXAMINATION: 2 view chest radiograph IMPRESSION: No prior studies available for comparison. There is no focal consolidation, pleural effusion, or pneumothorax. Heart size is upper limits of normal. Electronically signed by: Hilary Goldstein M.D. Orestes Rodríguez MD IMG XR PROCEDURES Final Result * Screening Mammogram Bilateral W Diallo (07/13/2021 3:47 PM CDT) Anatomical Region Laterality Modality Breast Bilateral Mammography Impressions 07/13/2021 4:22 PM CDT BI-RADS?? ATLAS category (overall): 1 Negative There is no mammographic evidence of malignancy. A 1 year screening mammogram is recommended. The patient has been or will be contacted. We recommend annual screening mammography for women at average risk of breast cancer beginning at age 40, based on guidelines of the [place] [employer] (ACR Practice Parameter for the Performance of Screening and Diagnostic Mammography) and [place] [employer]. For women with and elevated risk of breast cancer, please refer to the ACR Practice Parameter for specific screening recommendations. The patient will be entered into a reminder system with a target due date of 1 year for her next screening exam. Narrative 07/13/2021 4:22 PM CDT Screening Mammogram Bilateral W Diallo: 07/13/21 The study was acquired using full field digital technology and interpreted from soft copy. 2D digital mammographic views, as well as 3D digital tomosynthesis were performed in the CC and MLO projections. CLINICAL: ??Screening breast examination ??Medical history includes hypertension. ??No known family history of breast cancer. COMPARISONS: 07/10/2020 Screening Mammogram Bilateral W Diallo 12/20/2018 Screening Mammogram Bilateral W Diallo 12/13/2017 Screening Mammogram Bilateral W Dial[place] 12/06/2016 Screening Mammogram Bilateral W [place] BREAST TISSUE: The breasts have scattered areas of fibroglandular density. FINDINGS: No suspicious masses, suspicious calcifications, or other suspicious findings are seen within either breast. There has been no suspicious change. us Jacob Mejía MD IMG MAMMO PROCEDURES Final Result * Dexa Axial Skeleton Bone Density 1 or 2 Site (05/07/2020 12:30 PM CDT) Anatomical Region Laterality Modality Body N/A Radiographic Diana ging 05/07/2020 2:37 PM CDT Narrative 05/07/2020 2:38 PM CDT Patient Name: THAO ORONA ?Ordering Dr: Jacob Mejía MD ?? D.O.B: 1955 ? Exam Date: 05/07/20 ?? 1230 ?? Age: 64 ?Sex: Female ? MR#: [id number] ?? Loc: ? RADIOLOGY REPORT ?? Order #[id number] ?? Bone Density ? Bone Density Hip/Spine (STD) ? Signed ? EXAM DESCRIPTION: ?? Bone Density Hip/Spine (STD) ? REASON FOR STUDY: ?64 year old ??postmenopausal black female with given ?? history of screening. ? Library Acquisitions Technician/Model: ?? Hologic Horizon A (S/N [id number]) ? CLINICAL INFORMATION: ??Current height: ??65 inches ? Maximum height: 66 inches ? Weight: 163 pounds ? Risk factors: None. ??Has taken vitamin-D and calcium. ??Performs regular ?? weight-bearing exercise. ??Does not regularly consume dairy products. ??Does not ?? drink caffeinated beverages. ? COMPARISON: ??None available. ? FINDINGS: ? AP LUMBAR SPINE L1-L4: ? Total BMD is ??1.014 g/cm2 ? T-score is -1.2 ? LEFT HIP: ? Total BMD is 0.825 g/cm2 ? T-score is -1.3 ? Femoral neck BMD is 0.751 g/cm2 ? T-score is -1.4 ?Fracture risk assessment (FRAX): ?10 year risk for a major osteoporotic fracture is 3.3 % ?10 year risk for a hip fracture is 0.2 % ? The FRAX tool has not been validated in patients currently or previously ?? treated with pharmacotherapy for osteoporosis. ??In such patients, clinical ?? judgement must be exercised in interpreting FRAX scores as the fracture risk ?? may be overestimated. ? IMPRESSION: ?? Low bone mass. ? REFERENCE: ??Bone mineral density: ?Normal (T-score above or = -1.0) ?Low bone mass ??(T-score between -1.0 and -2.5) replaces the previously ?? used term osteopenia ?Osteoporosis (T-score = or below -2.5) ? Medical evaluation for secondary causes of low bone mineral density may be ?? appropriate. ? FRAX is a World Health Organization validated fracture risk assessment tool ?? that calculates a person's 10 year probability of a major osteoporosis related ?? fracture and hip fracture. ??According to the National Osteoporosis Foundation ?? guidelines, postmenopausal women and men age 50 or older with low bone mass ?? and a 10 year probability of a major osteoporosis related fracture = or ?? greater than 20% or a 10 year probability of a hip fracture = or greater than ?? 3% should be considered for treatment. ? For further information, including treatment recommendations, please refer to ?? the 2013 ISCD Official Positions (http://www.iscd.org) and the NOF's ?? Clinician's Guide to Prevention and Treatment of Osteoporosis ?? (http://www.nof.org/professionals/clinical-guidelines) ? THIS IS AN ELECTRONICALLY VERIFIED FINAL REPORT ?? 05/07/2020 2:38 PM - Electronically signed by Werner Rojas M.D. ?? Werner Rojas M.D. ? RB: RB ?? D: ??05/07/2020 2:38 PM ?? T: ??05/07/2020 2:38 PM ? Report ID: [id number] ?? Reading Location: ??[id number] ? REPORT ELECTRONICALLY SIGNED IN OTHER VENDOR SYSTEM ?? Resulting Agency Comment O Procedure Note Werner Rojas MD - 05/07/2020 Patient Name: RUSSEL ORONAJOSE ANGEL Tejeda Dr: Jacob Mejía MD D.O.B: 1955 Exam Date: 05/07/20 1230 Age: 64 Sex: Female MR#: [id number] Loc: RADIOLOGY REPORT Order #[id number] Bone Density Bone Density Hip/Spine (STD) Signed EXAM DESCRIPTION: Bone Density Hip/Spine (STD) REASON FOR STUDY: 64 year old postmenopausal black female with given history of screening. Library Acquisitions Technician/Model: Hologic Horizon A (S/N [id number]) CLINICAL INFORMATION: Current height: 65 inches Maximum height: 66 inches Weight: 163 pounds Risk factors: None. Has taken vitamin-D and calcium. Performs regular weight-bearing exercise. Does not regularly consume dairy products.Does not drink caffeinated beverages. COMPARISON: None available. FINDINGS: AP LUMBAR SPINE L1-L4: Total BMD is 1.014 g/cm2 T-score is -1.2 LEFT HIP: Total BMD is 0.825 g/cm2 T-score is -1.3 Femoral neck BMD is 0.751 g/cm2 T-score is -1.4 Fracture risk assessment (FRAX): 10 year risk for a major osteoporotic fracture is 3.3 % 10 year risk for a hip fracture is 0.2 % The FRAX tool has not been validated in patients currently or previously treated with pharmacotherapy for osteoporosis. In such patients,clinical judgement must be exercised in interpreting FRAX scores as the fracturerisk may be overestimated. IMPRESSION: Low bone mass. REFERENCE: Bone mineral density: Normal (T-score above or = -1.0) Low bone mass (T-score between -1.0 and -2.5) replaces thepreviously used term osteopenia Osteoporosis (T-score = or below -2.5) Medical evaluation for secondary causes of low bone mineral density maybe appropriate. FRAX is a World Health Organization validated fracture risk assessmenttool that calculates a person's 10 year probability of a major osteoporosisrelated fracture and hip fracture. According to the National OsteoporosisFoundation guidelines, postmenopausal women and men age 50 or older with low bonemass and a 10 year probability of a major osteoporosis related fracture = or greater than 20% or a 10 year probability of a hip fracture = or greaterthan 3% should be considered for treatment. For further information, including treatment recommendations, pleaserefer to the 2013 ISCD Official Positions (http://www.iscd.org) and the NOF's Clinician's Guide to Prevention and Treatment of Osteoporosis (http://www.nof.org/professionals/clinical-guidelines) THIS IS AN ELECTRONICALLY VERIFIED FINAL REPORT 05/07/2020 2:38 PM - Electronically signed by Werner Rojas M.D. RB: LADARIUS Report ID: [id number] Reading Location: [place] [address] REPORT ELECTRONICALLY SIGNED IN OTHER VENDOR SYSTEM Jacob Mejía MD IMG DXA PROCEDURES Final Re sult from Last 3 Months or Most Recently Relevant to [place] [address] [place] [address] [employer] ACCESS CHOICE [employer] ACCESS CHOICE [employer] ACCESS CHOICE Care Teams Process Control Supervisor Relationship Specialty Start Date End Date Wyatt Leone MD [address] [place] [address] PCP - General Family Medicine 10/16/24
--- OUTSIDE RECORDS SUMMARY | 2024-11-21 17:15 | XMS_ITS | Continuity of Care Document ---
Author Organization [facility] Address [address] [place] [address] [place] [address] Phone Care Team Providers Care Financial Business Analyst Name Role Phone Aleksander Lara Unavailable Unavailable Procedures Procedure Date Office/outpatient Visit, Est Office/outpatient Visit, Est Office/outpatient Visit, Est Fundus Photography W/ Report Advance Directives Directive Yes / No Effective Date File Name No Information Encounters Encounter Description Practice Location Reason(s) For Visit Diagnoses Date Provider Providers Copied on Encounter [place] [facility] [place] [address] [place] [address] [address], [place], [place], [id number], [place] tel:[phone] [facility] No Information Dec-2 1-200 9 Jane Armijo. [address] [facility] , [address], [place], [place], [facility], . tel:[phone] [place] [facility] [place] [address] [place] [address] [address], [place], [place], [id number], [place] tel:[phone] [facility] No Information Dec-0 8-200 8 Nomansy Edjames. [address] , [address], [place], [place], [facility], . tel:[phone] [place] [facility] [place] [address] [place] [address] [address], [place], [place], [id number], [place] tel:[phone] [facility] No Information 0-200 7 Jane Armijo. [address] , [address], [place], [address], [place]. tel:[phone] Referring Provider: Aleksander Benjamin [address] [facility] [address], [place], [address]. tel:[phone] Family History Family Member Type Diagnosis Age At Onset No Information Payers Payer name Insurance type Covered libertarian ID Authoriza tion(s) No Information Social History Type Description Quantity Date Captured Comments Sex Female Smoking Status No Information Chief Complaint And Reason For Visit No Information Reason For Referral Reason For Referral No Information History Of Present Illness Encounter Date Complaint History Of Prese nt Illness No Information Functional Status Date Functional Assessmen t No Information Instructions Date Instruction Additional Infor mation No Information Assessments Type Assessment Date No Information Patient Care Teams Name Effective Dates (start - stop) Status Members No Information
--- OUTSIDE RECORDS SUMMARY | 2024-11-21 17:15 | XMS_ITS | Referral Summary ---
Author Organization [facility] Address [address] [place] [address] Care Team Providers Care Digital Media Coordinator Name Role Phone Wyatt Leone MD Primary Care Provider Encounters Date Type Department Care Team Description 10/16/2024 7:15 AM MAGNETO SPECIALIST - 10/16/2024 11:59 PM MAGNETO SPECIALIST Hospital Encounter [facility] [address] [place] [address] Atelectasis Discharge Disposition: Discharge to home or self care 10/16/2024 9:00 AM MAGNETO SPECIALIST Office Visit [facility] Pulmonary [address] [facility] [address] [place] [phone] Orestes Rodríguez MD Atelectasis (Primary Dx); Abnormal chest x-ray 10/16/2024 7:44 AM MAGNETO SPECIALIST - 10/16/2024 11:59 PM MAGNETO SPECIALIST Hospital Encounter [facility] PFT Lab [address] [facility] Building [address] [place] [id number] Atelectasis Discharge Disposition: Discharge to home or self care 10/03/2024 Orders Only [facility] Pulmonary [address] [facility] 8th [place] [address] [place] [address] Orestes Rodríguez MD Atelectasis (Primary Dx) 09/16/2024 2:40 PM MAGNETO SPECIALIST Office Visit [facility] Department of Otolaryngology Head-Neck Division [address] [facility] Floor 5 [place] [phone] Judit Tadeo PA Thyroid nodule (Primary Dx); Globus sensation; Epistaxis; Post-nasal drip 09/09/2024 Telephone [facility] ([facility] - [facility] ENT [address] [facility] 11th [place] [address] [place] [phone] Joselyn May MS from Last 3 Months Allergies Active Allergy Reactions Criticality Noted Date [...] vits62/FA/om3/dh a/epa ( GUMMY ORAL) 04/13/2022 Active xewuv-5-edt-epa- dpa-fish oil (Beaver-3 2100) 1,050-1,200 mg capsule 04/13/2000 Active lutein-zeaxanthi n 20-4 mg capsule 04/13/2022 Active cyclobenzaprine (FLEXERIL) 10 mg tablet Take 1 tablet (10 mg total) by mouth 3 (three) times a day as needed for muscle spasms 06/26/2024 Active calcium phos,dibas-vitam in D3 100 mg calcium- 3 mcg tablet 04/13/2022 Active biotin 10,000 mcg capsule 04/13/2022 Active aspirin 81 MG oral suspension 04/13/2022 Act oscar benzonatate (TESSALON) 200 mg capsule 10/05/2024 Active Active Problems Problem Noted Date Diagnosed Date Atelectasis 10/16/2024 Social History Tobacco Use Types Packs/Day Years Used Date Smoking Tobacco: Never Smokeless Tobacco: Never Comments No Sex and Gender Information Value Date Recorded Sex Assigned at Not on file Legal Sex Female 3:19 AM MAGNETO SPECIALIST Gender Identity Female 07/03/2024 4:22 PM CDT Sexual Orientation Straight 07/03/2024 4: 22 PM CDT Last Filed Vital Signs Vital Sign Reading Time Taken Comments Blood Pressure 121/70 10/16/2024 9:13 AM MAGNETO SPECIALIST Pulse 81 10/16/2024 9:13 AM MAGNETO SPECIALIST Temperature 36.6 ??C (97.8 ??F) 10/16/2024 9:13 AM CS T Respiratory Rate 18 10/16/2024 9:13 AM MAGNETO SPECIALIST Oxygen Saturation 99% 10/16/2024 9:13 AM MAGNETO SPECIALIST Inhaled Oxygen Concentration - - Weight 77.6 kg (171 lb) 10/16/2024 9:13 AM MAGNETO SPECIALIST Height 165.1 cm (5' 5 ) 10/16/2024 9:13 AM MAGNETO SPECIALIST Body Mass Index 28.46 10/16/2024 9:13 AM MAGNETO SPECIALIST Plan of Treatment Not on file Procedures Procedure Name Priority Date/Time Associated Diagnosis Comments PULMONARY FUNCTION TEST (PFT) Routine 10/16/2024 8:55 AM MAGNETO SPECIALIST Atelectasis XR CHEST PA LATERAL 2 VIEWS Schedule Routine, Read Routine (OP Routine) 10/16/2024 7:31 AM MAGNETO SPECIALIST Atelectasis SCREENING MAMMOGRAM BILATERAL W DIALLO Schedule Routine, Read Routine (OP Routine) 07/13/2021 3:47 PM CDT Screening breast examination DEXA AXIAL SKELETON BONE DENSITY 1 OR MORE SITES 05/07/2020 12:30 PM CDT from Last 3 Months or Most Recently Relevant to Health Maintenance Results * Pulmonary Function Test - (10/16/2024 8:55 AM MAGNETO SPECIALIST) FVC PRE 2.27 L [facility] FVC %PRE PRED 86 % [facility] FVC POST 2.34 L [facility] FVC %POST PRED 89 % [facility] FEV1 PRE 2.05 L [facility] FEV1 %PRE PRED 100 % [facility] FEV1 POST 2.06 L [facility] FEV1 %POST PRED 100 % [facility] FEV1/FVC PRE 90.3 % [facility] FEV1/FVC POST 88.3 % [facility] FRC PL PRE 2.34 L [facility] FRC PL %PRE PRED 78 % [facility] RV PRE 1.77 L [facility] RV %PRE PRED 81 % [facility] TLC PRE 4.52 L [facility] TLC %PRE PRED 86 % [facility] DLCO PRE 14.3 ml/min/mmH g [facility] DLCO %PRE PRED 72 % [facility] FIO2 % 21.00 % [facility] PaO2 84.0 mmHg [facility] PaCO2 44.0 mmHg [facility] pH 7.47 [facility] A-aDO2 POC 11.0 mmHg [facility] METHGB % 0.9 % [facility] COHb POC 0.9 % [facility] HCO3 32.0 mEq/L [facility] Anatomical Region Laterality Modality PFT 10/16/2024 7:47 AM MAGNETO SPECIALIST Narrative 10/17/2024 8:24 AM MAGNETO SPECIALIST Table formatting from the original result was not included. [facility] Division of Pulmonary & Critical Care Medicine [address] [place] [address]; [place] [address]; [place], [place] ??[address]; [phone] Pulmonary Function Laboratory Pulmonary Stress Test Simple/Oxygen [...] Work [distance (m) x body wt (kg)]: 06564 kg.m (normal >60,000kg.m) Oxygen required to maintain [...] with the written final report. PFT performed at:->[facility] Adult PFT Lab- [facility] Procedure:->Oxygen Assessment Titration Procedure:->Spirometry Procedure:->Spirometry with Bronchodilator [...] and %HbO2 is age dependent. However, the [facility] Pulmonary Function Laboratory defines hypoxemia as a PaO2 <56 mm Hg or a %HbO2 <89%. us Orestes Rodríguez MD PFT ORDERABLES F inal Result * XR Chest Pa Lateral 2 Views (10/16/2024 7:31 AM MAGNETO SPECIALIST) Anatomical Region Laterality Modality Body, Chest N/A Computed Radiogr aphy 10/16/2024 9:12 AM MAGNETO SPECIALIST Impressions 10/16/2024 9:12 AM MAGNETO SPECIALIST No prior studies available for comparison. ??There is no focal consolidation, pleural effusion, or pneumothorax. ??Heart size is upper limits of normal. ?? Electronically signed by: Hilary Goldstein M.D. Narrative 10/16/2024 9:12 AM MAGNETO SPECIALIST EXAMINATION: 2 view chest radiograph Procedure Note Hilary Goldstein MD - 10/16/2024 EXAMINATION: 2 view chest radiograph IMPRESSION: No prior studies available for comparison. There is no focal consolidation, pleural effusion, or pneumothorax. Heart size is upper limits of normal. Electronically signed by: Hilary Goldstein M.D. us Orestes Rodríguez MD IMG XR PROCEDURES Final [...] age 40, based on guidelines of the [employer] (ACR Practice Parameter for the Performance of Screening and Diagnostic Mammography) and [employer]. For women [...] MD ?? D.O.B: 1955 ? Exam Date: 07/09/20 ?? 1230 ?? Age: 64 ?Sex: Female ? MR#: [id number] ?? Loc: ? RADIOLOGY REPORT ?? Order #[id number] ?? Bone Density ? Bone Density Hip/Spine (STD) ? Signed ? EXAM DESCRIPTION: ?? Bone Density Hip/Spine (STD) ? REASON FOR STUDY: ?64 year old ??postmenopausal black female with given ?? history of screening. ? 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 Hologic Horizon A (S/N [id number]) ? CLINICAL INFORMATION: ??Current height: ??65 inches [...] T: ??05/07/2020 2:38 PM ? Report ID: [id number] ?? Reading Location: ??[id number] ? REPORT ELECTRONICALLY SIGNED IN OTHER VENDOR SYSTEM ?? Resulting Agency Comment O Procedure Note Werner Rojas MD - 05/07/2020 Patient Name: THAO ORONA Dr: Jacob Mejía MD D.O.B: 1955 Exam Date: 05/07/20 1230 Age: 64 Sex: Female MR#: [id number] Loc: RADIOLOGY REPORT Order #[id number] Bone Density Bone Density Hip/Spine (STD) Signed EXAM DESCRIPTION: Bone Density Hip/Spine (STD) REASON FOR STUDY: 64 year old postmenopausal black female with given history of screening. 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 RB: LADARIUS Report ID: [id number] Reading Location: [place] [address] REPORT ELECTRONICALLY SIGNED IN OTHER VENDOR SYSTEM Jacob Mejía MD IMG DXA PROCEDURES Final Re sult from Last 3 Months or Most Recently Relevant to Health Maintenance Insurance VIN ACCESS CHOICE ANTHEM ACCESS CHOICE ANTHEM ACCESS CHOICE Care Teams Digital Media Coordinator Relationship Specialty Start Date End Date Wyatt Leone MD [address] [address] PCP - General Family Medicine 10/16/24
== END 2024-11-19 10:14 | disposition home or self-care (01) ==
PROVIDERS: PCP Family Medicine; Visit Provider Nurse Practitioner
DX: Z12.31 Encounter for screening mammogram for malignant neoplasm of breast (principal)
CPT/HCPCS: 77063; 77067

== ENCOUNTER 2025-01-25 11:57 | Emergency (ER) | payer BC, SELFPAY ==
--- NOTE | 2025-01-25 12:00 | ED.GENADULT ---
HPI - General Adult General Chief complaint: Upper Respiratory Infection Stated complaint: left leg and hip/cold/flu Time Seen by Provider: 01/25/25 12:00 Source: patient Mode of arrival: ambulatory Limitations: no limitations History of Present Illness HPI narrative: 69-year-old female patient presents to the [facility] with complaints of left thigh pain. She patient states last week she was playing with her granddaughter and she did fall but did not think that she is severely injured her leg because she was able to get back up and did not really have any pain. Patient states that she was sent in the closet also last week with her left leg bent under her and states that when she went to go get up she felt a strain to the left thigh. Patient denies taking anything for this pain but states she has been using some muscle cream and just massaging the thigh. Patient states it does not hurt her when she is just resting however when she gets up and tries to walk has pain to the thigh area. Patient states that time she gets shooting pain down the leg but denies any issues with walking. Denies any loss of bowel or bladder control. Denies any low back pain. Patient states that she recently traveled on Monday came back from floor to after visi her daughter. Patient states she was fine when getting on the plane while on the plane she started feeling bad. Patient states she has had fatigue, congestion, runny nose fevers as high as 100 and just overall not feeling well. Patient states she did test herself for COVID which was negative but coming in for evaluation. Denies chest pain or shortness of breath or coughing at this time. Related Data Home Medications ?Medication ?Instructions ?Recorded ?Confirmed ?Last Taken ?Type aspirin 81 mg chewable tablet 81 mg PO DAILY 09/04/19 12/30/24 10/23/19 07:00 History calcium carbonate (Calcium 600) 600 mg PO DAILY 09/04/19 12/30/24 10/23/19 07:00 History lutein 25 mg-zeaxanthin 5 mg 1 cap PO DAILY 09/04/19 12/30/24 10/23/19 07:00 History capsule multivitamin 1 tablet PO DAILY 09/04/19 12/30/24 10/23/19 07:00 History prenat.vits,rosa maria,rps-axmk-npuma 1 tablet PO DAILY 09/04/19 12/30/2419 07:00 History coQ10 (ubiquinol) 200 mg capsule 400 mg PO DAILY 10/21/19 12/30/24 10/23/19 07:00 History fish oil-dha-epa 1,200 mg-144 1 cap PO DAILY 10/21/19 12/30/24 10/23/19 07:00 History mg-216 mg capsule safflower oil-linoleic acid, 2,000 mg PO TID 10/21/19 12/30/24 10/23/19 07:00 History conjugated 1,000 mg capsule (Tonalin CLA) cholecalciferol (vitamin D3) 1,250 1,250 mcg PO ONCE 01/25/25 01/25/25 Unknown History mcg (50,000 unit) capsule Allergies Allergy/AdvReac Type Severity Reaction Status Date / Time erythromycin base AdvReac Unknown NAUSEA/VOMITING, Verified 01/25/25 12:12 CRAMPS Review of Systems Review of Systems: CONSTITUTIONAL: Positive fever, body aches and chills, or sweats. positive fatigue EYES: Denies visual changes, redness, or discharge. ENT: positive rhinorrhea, congestion, sore throat, denies otalgia. CARDIOVASCULAR: Denies chest pain, palpitations, or edema. RESPIRATORY: Denies cough or dyspnea. GASTROINTESTINAL: Denies abdominal pain, nausea, vomiting, or diarrhea. GENITOURINARY: Denies dysuria or hematuria. SKIN: Denies rash or itching. MUSCULOSKELETAL: Denies back pain, joint pain, or myalgia. positive left thigh pain NEUROLOGIC: Denies headache, numbness, or weakness. PSYCHIATRIC: Denies anxiety or depression. [facility] Past Medical History Medical History Osteopenia Multinodular thyroid Hypertensive chronic kidney disease with stage 1 through stage 4 chronic kidney disease, or unspecified chronic kidney disease Chronic kidney disease (CKD) Internal hemorrhoid Rectal polyp Wellness examination Mitral valve prolapse no symptoms since on aspirin Benign essential HTN Pure hypercholesterolemia Family History Family History Mother Hypertension Father Family history of diabetes mellitus in first degree relative Social History Social History Smoking status: Never smoker Second hand tobacco smoke exposure: No Alcohol intake: never Substance use: never Living arrangements: with family Occupation/Education: retired Gender identity (if verbalized by the patient): Female Sexual Orientation (if Verbalized by the Patient): Straight or Heterosexual Comments At the time of my signature I agree with nursing past medical history, surgical, social, and family history. There is no relevant family history pertinent to the presenting complaint. Exam Narrative: GENERAL: Well-appearing, well-nourished, and in no acute distress. HEAD: Normocephalic, atraumatic. EYES: PERRLA and EOMI. ENT: Nares with erythema edema noted bilaterally, no rhinorrhea or epistaxis. Mucous membranes moist. posterior pharynx with no erythema, tonsillar enlargement, exudates or lesions present. Bilateral TMs are clear no erythema or foreign bodies the canal. NECK: Supple. No lymphadenopathy CHEST: Clear to auscultation. No respiratory distress. HEART: Regular rate and rhythm. No murmur heard. Normal peripheral pulses. ABDOMEN: Soft, nontender, nondistended, normal active bowel sounds. EXTREMITIES: Normal range of motion. No edema. Patient has obvious muscle spasm noted to the proximal area of the anterior thigh on the left leg. Patient does have good range of motion of the hip and leg. No suspected bone involvement this time. SKIN: Warm, dry, no rash. NEURO: No focal deficits. Alert and oriented x3. Course Course Level of Care: Express Care Visit Reevaluation(s) Reevaluation #1: Re-evaluated patient notified her that her influenza test is negative today. Discussed with her that we will send her some muscle relaxants to the pharmacy to help with the spasm in her left thigh she can take this with Tylenol ibuprofen if she continues to have pain with walking after about 2 or 3 weeks and she needs to follow up with her primary doctor. Patient verbalized understanding denies any other questions or concerns at this time. Date: 01/25/25 Time: 13:01 Vital Signs Vital signs: Vital Signs Temperature 36.8 C 01/25/25 12:06 Pulse Rate 79 01/25/25 12:06 Respiratory Rate 18 01/25/25 12:06 Blood Pressure 132/65 01/25/25 12:06 Pulse Oximetry 100 01/25/25 12:06 Oxygen Delivery Room Air 01/25/25 12:06 Temperature 36.8 C 01/25/25 12:06 Pulse Rate 79 01/25/25 12:06 Respiratory Rate 18 01/25/25 12:06 Blood Pressure 132/65 01/25/25 12:06 Pulse Oximetry 100 01/25/25 12:06 Oxygen Delivery Room Air 01/25/25 12:06 vital signs reviewed. Medical Decision Making MDM Narrative Medical decision making narrative: Plan of care for patient is to swab her today for influenza since she did recently travel. We will not test her for COVID since she just tested yesterday. Discussed with patient that I do believe she most likely has a muscle spasm to the left thigh based on her exam. We will discharge her home with muscle relaxants for this she has declined an x-ray at this time. Differential Diagnosis Differential Diagnosis: Differential diagnosis: Allergic rhinitis, chronic sinusitis, tonsillitis, acute sinusitis, infectious mononucleosis, seasonal influenza, pertussis, diphtheria, meningococcal disease, viral syndrome, viral bronchitis, RSV, COVID-19 Vital Signs Vital Signs: Vital Signs Temperature 36.8 C 01/25/25 12:06 Pulse Rate 79 01/25/25 12:06 Respiratory Rate 18 01/25/25 12:06 Blood Pressure 132/65 01/25/25 12:06 Pulse Oximetry 100 01/25/25 12:06 Oxygen Delivery Room Air 01/25/25 12:06 Temperature 36.8 C 01/25/25 12:06 Pulse Rate 79 01/25/25 12:06 Respiratory Rate 18 01/25/25 12:06 Blood Pressure 132/65 01/25/25 12:06 Pulse Oximetry 100 01/25/25 12:06 Oxygen Delivery Room Air 01/25/25 12:06 Lab Data Labs: Lab Results 01/25/25 Range/Units 12:54 POC Influenza A Ag Negative (Negative) POC Influenza B Ag Negative (Negative) Critical Care Time Critical Care Time Critical Care Time: No Discharge Plan Discharge Clinical Impression: Muscle spasm of left lower extremity, Viral URI Patient Disposition: Home, Self-Care Condition: Stable Instructions: Antibiotic Form, Muscle Spasm (ED) Additional Instructions: Viral illness may last between 7-12days; antibiotic is NOT recommended at this time. Recommend antihistamine such as Benadryl at night time and Claritin/Zyrtec/Demi during the day Cough syrup may cause drowsiness; avoid driving or take it at night time. Use inhaler as needed for cough, wheezing, shortness of breath or chest tightness. Also, recommend symptomatic treatment includes: rest, fluids, and increase humidity of the air at home. Recommend Acetaminophen or nonsteroidal anti-inflammatory agents (NSAIDs) as directed in the bottle to reduce fever and/pain/headache. Avoid smoking/second-hand smoke. Limit visits to areas with large crowds. Please schedule a follow-up visit with your personal physician for further evaluation and treatment within 3-5days. Including recheck and discussion of your blood pressure. If your symptoms persist, change or worsen significantly before you can contact your personal physician then please, without delay, go to the emergency department for further evaluation. Patient Language: French Prescriptions: New cyclobenzaprine 10 mg tablet 10 mg PO TID PRN (Reason: muscle spasm) 10 Days Qty: 30 0RF No Action cholecalciferol (vitamin D3) 1,250 mcg (50,000 unit) capsule 1,250 mcg PO ONCE lutein-zeaxanthin 25-5 mg capsule 1 cap PO DAILY aspirin 81 mg tablet,chewable 81 mg PO DAILY calcium carbonate [Calcium 600] 600 mg calcium (1,500 mg) tablet 600 mg PO DAILY prenat.vits,rosa maria,oif-zado-muele Tablet 1 tablet PO DAILY multivitamin Tablet 1 tablet PO DAILY fish oil-dha-epa 1,200-144-216 mg Capsule 1 cap PO DAILY Tonalin CLA 1,000 mg Capsule 2,000 mg PO TID coQ10 (ubiquinol) 200 mg Capsule 400 mg PO DAILY atorvastatin 20 mg tablet See Rx Instructions .ROUTE .COMPLEX Qty: 90 3RF Dose Instruction: TAKE 1 TABLET DAILY Rx Instructions: TAKE 1 TABLET DAILY nifedipine 60 mg tablet extended release See Rx Instructions .ROUTE .COMPLEX Qty: 90 2RF Dose Instruction: TAKE 1 TABLET DAILY. Rx Instructions: TAKE 1 TABLET DAILY. Follow-up/Referrals: Wyatt Leone MD [Primary Care Provider] - Time of Disposition: 12:58
--- OUTSIDE RECORDS SUMMARY | 2025-01-25 12:00 | XMS_ITS | Continuity of Care Document ---
Author Organization [facility] Address [address] [place] [address] [place] [address] Phone Care Team Providers Care Seedling Sorter Name Role Phone Aleksander Lara Unavailable Unavailable Procedures Procedure Date Office/outpatient Visit, Est Office/outpatient Visit, Est Office/outpatient Visit, Est Fundus Photography W/ Report Advance Directives Directive Yes / No Effective Date File Name No Information Encounters Encounter Description Practice Location Reason(s) For Visit Diagnoses Date Provider Providers Copied on Encounter Office/outpat ient Visit, [facility], [address] [place] [address] [address], [place], [place], [id number], [place] tel:[phone] [facility] No Information Dec-2 1-200 [address] Jane Armijo. [address] , [address], [place], [place], [facility], . tel:[phone] Office/outpat ient Visit, [facility], [address] [place] [address] [address], [place], [place], [id number], [place] tel:[phone] [facility] No Information Dec-0 8-200 8 Nomansy Edjames. [address] , [address], [place], [place], [facility], . tel:[phone] Office/outpat ient Visit, [facility], [address] [place] [address] [address], [place], [place], [id number], [place] tel:[phone] [facility] No Information 0-200 7 Jane Armijo. [address] , [address], [place], [address], [place]. tel:[phone] Referring Provider: Aleksander Benjamin [address], [place], [address]. tel:[phone] Family History Family Member Type Diagnosis Age At Onset No Information Payers Payer name Insurance type Covered democrat ID Authoriza tion(s) No Information Social History [...]
--- OUTSIDE RECORDS SUMMARY | 2025-01-25 12:01 | XMS_ITS | Referral Summary ---
Author Organization [facility] Address [address] [place] [address] Care Team Providers Care Supervisor Securities Vault Name Role Phone Wyatt Leone MD Primary [...] vits62/FA/om3/dh a/epa ( GUMMY ORAL) 04/13/2022 Active utdsk-7-qmn-epa- dpa-fish oil ([place]-3 2100) 1,050-1,200 mg capsule 04/13/2000 Active lutein-zeaxanthi [...] on file Legal Sex Female 3:19 AM SPECIAL FORCES MEDICAL SERGEANT Gender Identity Female 07/03/2024 4:22 PM CDT Sexual Orientation Straight 07/03/2024 4: 22 PM CDT Last Filed Vital Signs Vital Sign Reading Time Taken Comments Blood Pressure 121/70 10/16/2024 9:13 AM SPECIAL FORCES MEDICAL SERGEANT Pulse 81 10/16/2024 9:13 AM SPECIAL FORCES MEDICAL SERGEANT Temperature 36.6 C (97.8 F) 10/16/2024 9:13 AM SPECIAL FORCES MEDICAL SERGEANT Respiratory Rate 18 10/16/2024 9:13 AM SPECIAL FORCES MEDICAL SERGEANT Oxygen Saturation 99% 10/16/2024 9:13 AM SPECIAL FORCES MEDICAL SERGEANT Inhaled Oxygen Concentration - - Weight 77.6 kg (171 lb) 10/16/2024 9:13 AM SPECIAL FORCES MEDICAL SERGEANT Height 165.1 cm (5' 5 ) 10/16/2024 9:13 AM SPECIAL FORCES MEDICAL SERGEANT Body Mass Index 28.46 10/16/2024 9:13 AM SPECIAL FORCES MEDICAL SERGEANT Plan of Treatment Not on file Procedures Procedure Name Priority Date/Time Associated Diagnosis Comments SCREENING MAMMOGRAM BILATERAL W DIALLO Schedule Routine, Read Routine (OP Routine) 07/13/2021 3:47 PM CDT Screening breast examination DEXA AXIAL SKELETON BONE DENSITY 1 OR MORE SITES 05/07/2020 12:30 PM CDT from Last 3 Months or Most Recently Relevant to Health Maintenance Results * Screening Mammogram Bilateral W Diallo (07/13/2021 3:47 PM CDT) Anatomical Region Laterality Modality Breast Bilateral Mammography Impressions 07/13/2021 4:22 PM CDT BI-RADS ATLAS category (overall): 1 Negative There is no mammographic evidence of malignancy. A 1 year screening mammogram is recommended. The patient has been or will be contacted. We recommend annual screening mammography for women at average risk of breast cancer beginning at age 40, based on guidelines of the [employer] (ACR Practice Parameter for the Performance of Screening and Diagnostic Mammography) and [employer]. For women [...] in the CC and MLO projections. CLINICAL: Screening breast examination Medical history includes hypertension. No known family history of breast cancer. COMPARISONS: 07/10/2020 Screening Mammogram Bilateral W Diallo 12/20/2018 Screening Mammogram Bilateral W Diallo 12/13/2017 Screening Mammogram Bilateral W Diallo 12/06/2016 Screening Mammogram Bilateral W Diallo BREAST TISSUE: The breasts have scattered areas of fibroglandular density. FINDINGS: No suspicious masses, suspicious calcifications, or other suspicious findings are seen within either breast. There has been no suspicious change. Jacob Mejía MD IMG MAMMO PROCEDURES Final Result * Dexa Axial Skeleton Bone Density 1 or 2 Site (05/07/2020 12:30 PM CDT) Anatomical Region Laterality Modality Body N/A Radiographic Diana ging 05/07/2020 2:37 PM CDT Narrative 05/07/2020 2:38 PM CDT Patient Name: THAO ORONA Ordering Dr: Jacob Mejía MD D.O.B: 1955 Exam Date: 05/07/20 1230 Age: 64 Sex: Female MR#: [id number] Loc: RADIOLOGY REPORT Order #[id number] Bone Density Bone Density Hip/Spine (STD) Signed EXAM DESCRIPTION: Bone Density Hip/Spine (STD) REASON FOR STUDY: 64 year old postmenopausal black female with given history of screening. Audio Visual Production Specialist/Model: HoloProteoTech Horizon A (S/N [id number]) CLINICAL INFORMATION: Current height: 65 inches Maximum height: 66 inches Weight: 163 pounds Risk factors: None. Has taken vitamin-D and calcium. Performs regular weight-bearing exercise. Does not regularly consume dairy products. Does not drink caffeinated beverages. COMPARISON: None available. [...] treated with pharmacotherapy for osteoporosis. In such patients, clinical judgement must be exercised in interpreting FRAX scores as the fracture risk may be overestimated. IMPRESSION: Low bone mass. REFERENCE: Bone mineral density: Normal (T-score above or = -1.0) Low bone mass (T-score between -1.0 and -2.5) replaces the previously used term osteopenia Osteoporosis (T-score = or below -2.5) Medical evaluation for secondary causes of low bone mineral density may be appropriate. FRAX is a World Health Organization validated fracture risk assessment tool that calculates a person's 10 year probability of a major osteoporosis related fracture and hip fracture. According to the National Osteoporosis Foundation guidelines, postmenopausal women and men age 50 or older with low bone mass and a 10 year probability of a major osteoporosis related fracture = or greater than 20% or a 10 year probability of a hip fracture = or greater than 3% should be considered for treatment. For further information, including treatment recommendations, please refer to the 2013 ISCD Official Positions (http://www.iscd.org) and the NOF's Clinician's Guide to Prevention and Treatment of Osteoporosis (http://www.nof.org/professionals/clinical-guidelines) THIS IS AN ELECTRONICALLY VERIFIED FINAL REPORT 05/07/2020 2:38 PM - Electronically signed by Werner Rojas M.D. RB: LADARIUS Report ID: [id number] Reading Location: [place] [address] REPORT ELECTRONICALLY SIGNED IN OTHER VENDOR SYSTEM Resulting Agency Comment O Procedure Note Werner Rojas MD - 05/07/2020 Patient Name: THAO ORONA Dr: Jacob Mejía MD D.O.B: 1955 Exam Date: 05/07/20 1230 Age: 64 Sex: Female MR#: [id number] Loc: RADIOLOGY REPORT Order #[id number] Bone Density Bone Density Hip/Spine (STD) Signed EXAM DESCRIPTION: Bone Density Hip/Spine (STD) REASON FOR STUDY: 64 year old postmenopausal black female with given history of screening. Audio Visual Production Specialist/Model: Sanaexpert A (S/N [id number]) CLINICAL INFORMATION: Current height: 65 inches Maximum [...] Werner Rojas M.D. RB: LADARIUS Report ID: [id number] Reading Location: [place] [address] REPORT ELECTRONICALLY SIGNED IN OTHER VENDOR SYSTEM Jacob Mejía MD IMG DXA PROCEDURES Final Re sult from Last 3 Months or Most Recently Relevant to Health Maintenance Insurance VIN GRAY CHOICE ANTHEM ACCESS CHOICE ANTHEM ACCESS CHOICE Care Teams Supervisor Securities Vault Relationship Specialty Start Date End Date Wyatt Leone MD [address] [facility] [address] [place] [address] PCP - General Family Medicine 10/16/24
--- OUTSIDE RECORDS SUMMARY | 2025-01-25 12:01 | XMS_ITS | Clinical Summary ---
Author Organization [facility] Address [address] [place] [address] Care Team Providers Care Torch Shearer Name Role Phone Wyatt Leone MD Primary [...] vits62/FA/om3/dh a/epa ( GUMMY ORAL) 04/13/2022 Active hgwdv-9-yky-epa- dpa-fish oil ([place]-3 2100) 1,050-1,200 mg capsule 04/13/2000 Active lutein-zeaxanthi [...] Problem Noted Date Diagnosed Date Atelectasis 10/16/2024 Medical History Medical History Date Comments Hypercholesteremia [...] on file Legal Sex Female 3:19 AM REGIONAL ENGAGEMENT CONSULTANT Gender Identity Female 07/03/2024 4:22 PM CDT Sexual Orientation Straight 07/03/2024 4: 22 PM CDT Obstetrics History Para Term AB IAB SAB Ectopic Multiple Livin g Live Births 2 2 2 Date Outcome GA Total Labor Labor/2nd/3rd Weight Sex Type Anes PTL Zahraa A1 A5 Name Clin Term Term Last Filed Vital Signs Vital Sign Reading Time Taken Comments Blood Pressure 121/70 10/16/2024 9:13 AM REGIONAL ENGAGEMENT CONSULTANT Pulse 81 10/16/2024 9:13 AM REGIONAL ENGAGEMENT CONSULTANT Temperature 36.6 C (97.8 F) 10/16/2024 9:13 AM REGIONAL ENGAGEMENT CONSULTANT Respiratory Rate 18 10/16/2024 9:13 AM REGIONAL ENGAGEMENT CONSULTANT Oxygen Saturation 99% 10/16/2024 9:13 AM REGIONAL ENGAGEMENT CONSULTANT Inhaled Oxygen Concentration - - Weight 77.6 kg (171 lb) 10/16/2024 9:13 AM REGIONAL ENGAGEMENT CONSULTANT Height 165.1 cm (5' 5 ) 10/16/2024 9:13 AM REGIONAL ENGAGEMENT CONSULTANT Body Mass Index 28.46 10/16/2024 9:13 AM REGIONAL ENGAGEMENT CONSULTANT Plan of Treatment Health Maintenance Due Date Last Done Comments Colon Cancer Screening-Colonoscopy 1955 Depression Screening 1955 Fall Risk Assessment 1955 Hepatitis C Screening 1955 DTaP/Tdap/Td Vaccine (1 - Tdap) 1968 Hepatitis B Screening 1975 Pneumococcal vaccine 65+ (1 of 1 - PCV) 2007 Zoster Vaccine (1 of 2) 2007 Osteoporosis Screening-Bone Density Scan 05/07/2022 05/07/2020 Breast Cancer Screening-Mammogram 07/13/2022 07/13/2021, 07/10/2020, 12/20/2018, Additional history exists Well Visit 65+ 2022 Covid-19 Vaccine (3 - 2023-2 5 season) 2024 03/18/2021, 02/24/2021 Influenza Vaccine [...] age 40, based on guidelines of the [employer] (ACR Practice Parameter for the Performance of Screening and Diagnostic Mammography) and [employer]. For women [...] Modality Body N/A Radiographic Diana ging 05/07/2020 2:3 7 PM CDT Narrative 05/07/2020 2:38 PM CDT Patient Name: THAO ORONA Ordering Dr: Jacob Mejía MD D.O.B: 1955 Exam Date: 05/07/20 1230 Age: 64 Sex: Female MR#: [id number] Loc: RADIOLOGY REPORT Order #[id number] Bone Density Bone Density Hip/Spine (STD) Signed EXAM DESCRIPTION: Bone Density Hip/Spine (STD) REASON FOR STUDY: 64 year old postmenopausal black female with given history of screening. Airplane Patroller/Model: Hologic Horizon A (S/N [id number]) CLINICAL INFORMATION: Current height: 65 inches Maximum [...] Werner Rojas M.D. RB: LADARIUS Report ID: [id number] Reading Location: [place] [address] REPORT ELECTRONICALLY SIGNED IN OTHER VENDOR SYSTEM Resulting Agency Comment O Procedure Note Werner Rojas MD - 05/07/2020 Patient Name: RUSSEL ORONAJOSE ANGEL Tejeda Dr: Jacob Mejía MD D.O.B: 1955 Exam Date: 05/07/20 1230 Age: 64 Sex: Female MR#: [id number] Loc: RADIOLOGY REPORT Order #[id number] Bone Density Bone Density Hip/Spine (STD) Signed EXAM DESCRIPTION: Bone Density Hip/Spine (STD) REASON FOR STUDY: 64 year old postmenopausal black female with given history of screening. Airplane Patroller/Model: Alleantia Horizon A (S/N [id number]) CLINICAL INFORMATION: Current height: 65 inches Maximum [...] Werner Rojas M.D. RB: LADARIUS Report ID: [id number] Reading Location: [id number] REPORT ELECTRONICALLY SIGNED IN OTHER VENDOR SYSTEM Jacob Mejía MD IMG DXA PROCEDURES Final Re sult from Last 3 Months or Most Recently Relevant to Health Maintenance Insurance [employer] ACCESS CHOICE [employer] ACCESS CHOICE VIN GRAY CHOICE Care Teams Torch Shearer Relationship Specialty Start Date End Date Wyatt Leone MD [address] [facility] [address] [place] [address] PCP - General Family Medicine 10/16/24
--- OUTSIDE RECORDS SUMMARY | 2025-01-25 12:02 | XMS_ITS | Continuity of Care Document ---
Author Organization [facility] Address [address] [place] [address] [place] [address] Phone Care Team Providers Care Fashion Styling Intern Name Role Phone Aleksander Lara Unavailable Unavailable Procedures Procedure Date Office/outpatient Visit, Est Office/outpatient Visit, Est Office/outpatient Visit, Est Fundus Photography W/ Report Advance Directives Directive Yes / No Effective Date File Name No Information Encounters Encounter Description Practice Location Reason(s) For Visit Diagnoses Date Provider Providers Copied on Encounter Office/outpat ient Visit, [facility] [place], [address] [place] [address] [address], [place], [place], [id number], [place] tel:[phone] [facility] No Information Dec-2 1-200 9 Jane Armijo. [address] [facility] , [address], [place], [place], [facility], . tel:[phone] Office/outpat ient Visit, [facility] [place], [address] [place] [address] [address], [place], [place], [id number], [place] tel:[phone] [facility] No Information Dec-0 8-200 8 Nomansy Edjames. [address] , [address], [place], [place], [facility], . tel:[phone] Office/outpat ient Visit, [facility] [place], [address] [place] [address] [address], [place], [place], [address], [place] tel:[phone] [facility] No Information 0-200 7 Jane Armijo. [address] , [address], [place], [address], [place]. tel:[phone] Referring Provider: Aleksander Benjamin [address] [facility] [address], [place], [address]. tel:[phone] Family History Family Member Type Diagnosis Age At Onset No Information Payers Payer name Insurance type Covered republican ID Authoriza tion(s) No Information Social History [...]
[2025-01-25 12:06] VITALS: BP 132/65; PULSE 79; RESP 18; TEMP 36.8; O2SAT 100
[2025-01-25 12:56] LABS: EDINFLUASCREEN Negative (Negative); EDINFLUBSCREEN Negative (Negative)
== END 2025-01-25 13:00 | disposition home or self-care (01) ==
PROVIDERS: Emergency Provider Nurse Practitioner Family; PCP Family Medicine
DX: M62.838 Other muscle spasm (principal); J06.9 Acute upper respiratory infection, unspecified; M85.80 Other specified disorders of bone density and structure, unspecified site; I12.9 Hypertensive chronic kidney disease with stage 1 through stage 4 chronic kidney disease, or unspecified chronic kidney disease; N18.9 Chronic kidney disease, unspecified; E78.00 Pure hypercholesterolemia, unspecified; I34.1 Nonrheumatic mitral (valve) prolapse; E04.2 Nontoxic multinodular goiter; Z79.82 Long term (current) use of aspirin
CPT/HCPCS: 87804; 99213; G0463

== ENCOUNTER 2025-03-10 13:41 | Outpatient (CLI) | payer BC, SELFPAY ==
--- OUTSIDE RECORDS SUMMARY | 2025-03-10 13:45 | XMS_ITS | Continuity of Care Document ---
Author Organization [facility] Address [address] [place] [address] [place] [address] Phone Care Team Providers Care Lobster Man Name Role Phone Aleksander Lara Unavailable Unavailable Procedures Procedure Date Office/outpatient Visit, Est Office/outpatient Visit, Est Office/outpatient Visit, Est Fundus Photography W/ Report Advance Directives Directive Yes / No Effective Date File Name No Information Encounters Encounter Description Practice Location Reason(s) For Visit Diagnoses Date Provider Providers Copied on Encounter Office/outpat ient Visit, [facility] [place] [facility] [place], [address] [place] [address] [address], [place], [place], [address], [place] tel:[phone] [facility] No Information Dec-2 1-200 9 Jane Armijo. [address] [facility] , [address], [place], [place], [facility], . tel:[phone] Office/outpat ient Visit, [facility] [place] [facility] [place], [address] [place] [address] [address], [place], [place], [address], [place] tel:[phone] [facility] No Information Dec-0 8-200 8 Jane Edjames. [address] , [address], [place], [place], [facility], . tel:[phone] Office/outpat ient Visit, [facility] [place] [facility] [place], [address] [place] [address] [address], [place], [place], [address], [place] tel:[phone] [facility] No Information 0-200 7 Jane Armijo. [address] , [address], [place], [address], [place]. tel:[phone] Referring Provider: Aleksander Benjamin [address] [facility] [address], [place], [address]. tel:[phone] Family History Family Member Type Diagnosis Age [...]
--- OUTSIDE RECORDS SUMMARY | 2025-03-10 13:45 | XMS_ITS | Referral Summary ---
Author Organization [facility] Address [address] [place] [address] Care Team Providers Care Pattern Keeper Name Role Phone Wyatt Leone MD Primary [...] vits62/FA/om3/dh a/epa ( GUMMY ORAL) 04/13/2022 Active hsgyq-8-bfu-epa- dpa-fish oil ([place]-3 2100) 1,050-1,200 mg capsule 04/13/2000 Active lutein-zeaxanthi [...] on file Legal Sex Female 3:19 AM WILDLIFE CONTROL AGENT Gender Identity Female 07/03/2024 4:22 PM CDT Sexual Orientation Straight 07/03/2024 4: 22 PM CDT Last Filed Vital Signs Vital Sign Reading Time Taken Comments Blood Pressure 121/70 10/16/2024 9:13 AM WILDLIFE CONTROL AGENT Pulse 81 10/16/2024 9:13 AM WILDLIFE CONTROL AGENT Temperature 36.6 C (97.8 F) 10/16/2024 9:13 AM WILDLIFE CONTROL AGENT Respiratory Rate 18 10/16/2024 9:13 AM WILDLIFE CONTROL AGENT Oxygen Saturation 99% 10/16/2024 9:13 AM WILDLIFE CONTROL AGENT Inhaled Oxygen Concentration - - Weight 77.6 kg (171 lb) 10/16/2024 9:13 AM WILDLIFE CONTROL AGENT Height 165.1 cm (5' 5 ) 10/16/2024 9:13 AM WILDLIFE CONTROL AGENT Body Mass Index 28.46 10/16/2024 9:13 AM WILDLIFE CONTROL AGENT Plan of Treatment Not on file Procedures [...] age 40, based on guidelines of the [employer] (ACR Practice Parameter for the Performance of Screening and Diagnostic Mammography) and [employer]. For women [...] 05/07/20 1230 Age: 64 Sex: Female MR#: [id number] Loc: RADIOLOGY REPORT Order #[id number] Bone Density Bone Density Hip/Spine (STD) Signed EXAM DESCRIPTION: Bone Density Hip/Spine (STD) REASON FOR STUDY: 64 year old postmenopausal black female with given history of screening. Raveler/Model: HoloInSphero Horizon A (S/N [id number]) CLINICAL INFORMATION: Current height: 65 inches Maximum [...] Werner Rojas M.D. RB: LADARIUS Report ID: [id number] Reading Location: [place] [address] REPORT ELECTRONICALLY SIGNED IN OTHER VENDOR SYSTEM Resulting Agency Comment O Procedure Note Werner Rojas MD - 05/07/2020 Patient Name: THAO ORONA Dr: Jacob Mejía MD D.O.B: 1955 Exam Date: 05/07/20 1230 Age: 64 Sex: Female MR#: [id number] Loc: RADIOLOGY REPORT Order #[id number] Bone Density Bone Density Hip/Spine (STD) Signed EXAM DESCRIPTION: Bone Density Hip/Spine (STD) REASON FOR STUDY: 64 year old postmenopausal black female with given history of screening. Raveler/Model: Betyah A (S/N [id number]) CLINICAL INFORMATION: Current height: 65 inches Maximum [...] Electronically signed by Werner Rojas M.D. RB: LDAARIUS Report ID: [id number] Reading Location: [place] [address] REPORT ELECTRONICALLY SIGNED IN OTHER VENDOR SYSTEM Jacob Mejía MD IMG DXA PROCEDURES Final Re sult from Last 3 Months or Most Recently Relevant to Health Maintenance Insurance VIN GRAY CHOICE ANTHEM ACCESS CHOICE ANTHEM ACCESS CHOICE Care Teams Pattern Keeper Relationship Specialty Start Date End Date Wyatt Leone MD [address] [facility] [address] [place] [address] PCP - General Family Medicine 10/16/24
--- OUTSIDE RECORDS SUMMARY | 2025-03-10 13:45 | XMS_ITS | Clinical Summary ---
Author Organization [facility] Address [address] [place] [address] Care Team Providers Care Recorder Gravity Prospecting Name Role Phone Wyatt Leone MD Primary [...] vits62/FA/om3/dh a/epa ( GUMMY ORAL) 04/13/2022 Active yrtam-0-tsv-epa- dpa-fish oil ([place]-3 2100) 1,050-1,200 mg capsule 04/13/2000 Active lutein-zeaxanthi [...] on file Legal Sex Female 3:19 AM IN HOME AIDE Gender Identity Female 07/03/2024 4:22 PM CDT [...] Comments Blood Pressure 121/70 10/16/2024 9:13 AM IN HOME AIDE Pulse 81 10/16/2024 9:13 AM IN HOME AIDE Temperature 36.6 C (97.8 F) 10/16/2024 9:13 AM IN HOME AIDE Respiratory Rate 18 10/16/2024 9:13 AM IN HOME AIDE Oxygen Saturation 99% 10/16/2024 9:13 AM IN HOME AIDE Inhaled Oxygen Concentration - - Weight 77.6 kg (171 lb) 10/16/2024 9:13 AM IN HOME AIDE Height 165.1 cm (5' 5 ) 10/16/2024 9:13 AM IN HOME AIDE Body Mass Index 28.46 10/16/2024 9:13 AM IN HOME AIDE Plan of Treatment Health Maintenance Due Date [...] 5 season) 2024 03/18/2021, 02/24/2021 Influenza Vaccine (Season Ended) 2025 Procedures Procedure Name Priority Date/Time Associated Diagnosis [...] age 40, based on guidelines of the [employer] [employer] (ACR Practice Parameter for the Performance of Screening and Diagnostic Mammography) and [employer]. For women [...] 05/07/20 1230 Age: 64 Sex: Female MR#: [id number] Loc: RADIOLOGY REPORT Order #[id number] Bone Density Bone Density Hip/Spine (STD) Signed EXAM DESCRIPTION: Bone Density Hip/Spine (STD) REASON FOR STUDY: 64 year old postmenopausal black female with given history of screening. Social Security Benefits Interviewer/Model: Hologic Horizon A (S/N [id number]) CLINICAL INFORMATION: Current height: 65 inches Maximum [...] Werner Rojas M.D. RB: LADARIUS Report ID: [id number] Reading Location: [place] [address] REPORT ELECTRONICALLY SIGNED IN OTHER VENDOR SYSTEM Resulting Agency Comment O Procedure Note Werner Rojas MD - 05/07/2020 Patient Name: RUSSEL ORONAJOSE ANGEL Tejeda Dr: Jacob Mejía MD D.O.B: 1955 Exam Date: 05/07/20 1230 Age: 64 Sex: Female MR#: [id number] Loc: RADIOLOGY REPORT Order #[id number] Bone Density Bone Density Hip/Spine (STD) Signed EXAM DESCRIPTION: Bone Density Hip/Spine (STD) REASON FOR STUDY: 64 year old postmenopausal black female with given history of screening. Social Security Benefits Interviewer/Model: eleni Horizon A (S/N [id number]) CLINICAL INFORMATION: Current height: 65 inches Maximum [...] Werner Rojas M.D. RB: LADARIUS Report ID: [id number] Reading Location: [id number] REPORT ELECTRONICALLY SIGNED IN OTHER VENDOR SYSTEM Jacob Mejía MD IMG DXA PROCEDURES Final Re sult from Last 3 Months or Most Recently Relevant to Health Maintenance Insurance [place] [address] [employer] ACCESS CHOICE VIN GRAY CHOICE Care Teams Recorder Gravity Prospecting Relationship Specialty Start Date End Date Wyatt Leone MD [address] [facility] [address] [place] [address] PCP - General Family Medicine 10/16/24
--- NOTE | 2025-03-10 13:50 | ECHO_ITS ---
Patient Info Name: Thao Lane Age: 69 years : 1955 Gender: Female Ht: 65 in Wt: 160 lbs BSA: 1.84 m2 HR: 80 bpm BP: 134 / 74 mmHg Technical Quality: Fair Exam Date: 03/10/2025 1:54 PM Exam Location: Echo Lab Patient Status: Outpatient Admit Date: 03/10/2025 Staff Ordering Physician: Wyatt Leone MD [employer] Operator: Lois Alcantar RDCS Attending Provider: Kerry Luna PA-C Referring Physician: Vasu LORD; Exam Type: CA echo doppler color flow Study Info Indications I51.7 - Cardiomegaly Complete two-dimensional, color flow and Doppler transthoracic echocardiogram is performed. Summary 1. Complete two-dimensional, color flow and Doppler transthoracic echocardiogram is performed. 2. Left ventricular chamber dimension is normal. 3. Left ventricular systolic function is hyperdynamic, estimated at >70%. 4. The left ventricular diastolic function is grade I diastolic dysfunction. 5. E/e' 6 is not elevated. 6. Left atrial chamber dimension is mildly enlarged. 7. There is mild aortic valve sclerosis. 8. There is mild aortic valve regurgitation. 9. No pulmonary hypertension, estimated pulmonary arterial systolic pressure is 30 mmHg. Left Ventricle E/e' 6 is not elevated. Left ventricular chamber dimension is normal. Left ventricular systolic function is hyperdynamic, estimated at >70%. The left ventricular diastolic function is grade I diastolic dysfunction. Right Ventricle Right ventricular chamber dimension is normal. Right ventricular systolic function is normal. Left Atria Left atrial chamber dimension is mildly enlarged. Right Atria Right atrial chamber dimension is normal. Aortic Valve The aortic valve is trileaflet. There is mild aortic valve sclerosis. There is no aortic valve stenosis. There is mild aortic valve regurgitation. Pulmonic Valve There is no pulmonic regurgitation. Mitral Valve There is no mitral valve stenosis. There is no mitral valve regurgitation. Tricuspid Valve There is no tricuspid valve regurgitation. No pulmonary hypertension, estimated pulmonary arterial systolic pressure is 30 mmHg. Pericardium/Pleural There is no pericardial effusion. Inferior Vena Cava Normal inferior vena cava with >50% collapse upon inspiration consistent with normal right atrial pressure, 5 mmHg. Aorta The aortic root size at the sinus of Valsalva is normal. Left Ventricular Outflow Tract Name Value Normal LVOT 2D LVOT Diameter 2.0 cm LVOT Doppler LVOT Peak Gradient 8 mmHg LVOT Mean Gradient 4 mmHg LVOT VTI 26 cm LVOT VTI/AV VTI Ratio 0.8 LVOT Stroke Volume 79 ml LVOT CO 5.8 l/min LVOT CI 3.1 l/min/m2 Pulmonic Valve Name Value Normal RVOT Doppler RVOT Peak Gradient 3 mmHg PV Doppler PV Peak Gradient 5 mmHg Mitral Valve Name Value Normal MV Doppler MV Decel Bennett 279 cm/s2 MV PHT 59 ms MV Area (PHT) 3.7 cm2 4.0-5.0 MV Diastolic Function MV E Peak Velocity 57 cm/s MV A Peak Velocity 81 cm/s MV E/A 0.7 MV Decel Time 204 ms Tricuspid Valve Name Value Normal TV Regurgitation Doppler TR Peak Velocity 248 cm/s TR Peak Gradient 17 mmHg Estimated PAP/RSVP RA Pressure 5 mmHg <=5 PA Systolic Pressure 30 mmHg <36 RV Systolic Pressure 30 mmHg <36 Aorta Name Value Normal Ascending Aorta Ao Root Diameter (MM) 2.4 cm Ao Root Diam Index (MM) 1.3 cm/m2 Aortic Valve Name Value Normal AV Doppler AV Peak Velocity 148 cm/s AV Peak Gradient 9 mmHg AV Mean Gradient 5 mmHg AV VTI 31 cm AV Area (Cont Eq VTI) 2.5 cm2 >=3.0 AV Area (Cont Eq Arun) 2.9 cm2 AV Regurgitation 2D LVOT Area 3.1 cm2 AV Regurgitation Doppler AR Decel Time 1,964 ms AR Decel Bennett 234 cm/s2 AR PHT 570 ms Ventricles Name Value Normal LV Dimensions 2D/MM IVS Diastolic Thickness (2D) 1.0 cm 0.6-1.0 IVS Diastole Thickness (MM) 0.9 cm 0.6-0.9 LVID Diastole (2D) 4.1 cm 3.8-5.2 LVID Diastole (MM) 5.2 cm 3.8-5.2 LVIW Diastolic Thickness (2D) 1.1 cm 0.6-0.9 LVIW Diastolic Thickness (MM) 0.8 cm 0.6-0.9 LVID Systole (2D) 2.6 cm 2.2-3.5 LVID Systole (MM) 2.3 cm 2.2-3.5 LVOT Diameter 2.0 cm LV Mass (2D Cubed) 139.06 g 67.00-162.00 LV Mass Index (2D Cubed) 76 g/m2 43-95 Relative Wall Thickness (2D) 0.55 LV Mass (MM Cubed) 150.89 g 67.00-162.00 LV Mass Index (MM Cubed) 82 g/m2 43-95 Relative Wall Thickness (MM) 0.30 LV Fractional Shortening/Ejection Fraction 2D/MM LV Fractional Shortening (2D) 37 % 27-45 LV Fractional Shortening (MM) 57 % 27-45 LV EF (MM Teicholz) 87 % 54-74 LV EF (2D Teicholz) 67 % 54-74 LV Diastolic Volume (4C MOD) 64 ml LV EF (4C MOD) 65 % LV Diastolic Volume (2C MOD) 53 ml LV EF (2C MOD) 58 % LV Diastolic Volume (BP MOD) 59 ml 46-106 LV Diastolic Volume Index (BP MOD) 32 ml/m2 29-61 LV Systolic Volume (BP MOD) 22 ml 14-42 LV Systolic Volume Index (BP MOD) 12 ml/m2 8-24 LV EF (BP MOD) 62 % 54-74 LV Diastolic Length (4C) 7.7 cm LV Systolic Length (4C) 6.8 cm LV Stroke Volume (4C MOD) 42 ml Atria Name Value Normal LA Dimensions LA Dimension (MM) 3.3 cm 2.7-3.8 LA Volume (4C A-L) 48 ml LA Volume (BP A-L) 47 ml RA Dimensions RA Area (4C) 13.6 cm2 <=18.0 Report Signatures
== END 2025-03-10 13:42 | disposition home or self-care (01) ==
PROVIDERS: PCP Family Medicine; Visit Provider Student in an Organized Health Care Education/Training Program
DX: R01.1 Cardiac murmur, unspecified (principal); I35.8 Other nonrheumatic aortic valve disorders; I35.1 Nonrheumatic aortic (valve) insufficiency; I51.89 Other ill-defined heart diseases
CPT/HCPCS: 93306

== ENCOUNTER 2025-03-13 12:38 | Outpatient (CLI) | payer BC, SELFPAY ==
--- NOTE | ~2025-03-13 | XR_ITS ---
XR shoulder RT min 2V 03/13/2025 12:52 INDICATION: Right shoulder pain PROCEDURE: 4 views right shoulder COMPARISON: No prior studies for comparison. FINDINGS: Fracture, dislocation or subluxation is not identified. The soft tissues appear within norm al limits. No foreign bodies are identified. IMPRESSION: 1: NO ACUTE BONE OR JOINT ABNORMALITY IDENTIFIED. 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
== END 2025-03-13 12:39 | disposition home or self-care (01) ==
LOC: MICIMG 12:40
PROVIDERS: PCP Family Medicine; Visit Provider Physician Assistant Medical
DX: M25.511 Pain in right shoulder (principal)
CPT/HCPCS: 73030